=== PATIENT | female | born 1935 | race Caucasian/White ===

== ENCOUNTER 2021-01-21 15:27 | Inpatient (IN) | payer MEDICARE ==
[2021-01-21] MEDS: DILTIAZEM 125 MG in SODIUM CHLORIDE 0.9% 100 ML IV SCH (16:35)
--- NOTE | 2021-01-21 16:49 | ED ---
General Adult HPI - General Chief complaint: Arrhythmia/Palpitations Stated complaint: Covid+ Time Seen by Provider: 01/21/21 15:48 Source: patient, EMS, RN notes reviewed Mode of arrival: EMS Limitations: no limitations - History of Present Illness Initial comments: Patient is a pleasant 85-year-old female presenting to the emergency department complaining of illness. Onset of symptoms was 9 days ago. Patient complains of fatigue. Patient does have cough. Patient may have some mild dyspnea. Patient has no appetite and loss of taste. Patient has significant fatigue. Patient has had some mild diarrhea. No history of similar symptoms previously. Patient was seen and [facility] and diagnosed with COVID-19 infection. Patient also diagnosed with new-onset A. fib RVR. Patient has refused any heparin. Patient continues to refuse heparin. There was question on patient's CODE STATUS however patient identifies herself as being full code at this time. Patient was given aspirin. Patient was placed on Cardizem drip. - Related Data Home Medications Medication Instructions Recorded Confirmed Ascorbic Acid [Vitamin C] 500 mg PO DAILY 01/21/21 01/21/21 Cholecalciferol [Vitamin D3 (25 25 mcg PO DAILY 01/21/21 01/21/21 Mcg = 1000 Iu)] Vitamin A (Unknown Strength) 1 tab PO DAILY 01/21/21 01/21/21 Vitamin B Complex 1 cap PO DAILY 01/21/21 01/21/21 Vitamin E 400 unit PO DAILY 01/21/21 01/21/21 Zinc 50 mg PO DAILY 01/21/21 01/21/21 Allergies Allergy/AdvReac Type Severity Reaction Status Date / Time azithromycin Allergy Anaphylaxis Verified 01/21/21 16:46 Penicillins Allergy affects Verified 01/21/21 16:46 heart rate procaine HCl [From Novocain] Allergy affects Verified 01/21/21 16:46 heart rate electro magnetic field Allergy affects Uncoded 04/13/15 14:18 heart rate metals Allergy Unknown Uncoded 04/13/15 14:18 xray exposure Allergy affects Uncoded 04/13/15 14:18 heart rate Review of Systems ROS Statement: Those systems with pertinent positive or pertinent negative responses have been documented in the HPI. ROS Other: All systems not noted in ROS Statement are negative. Constitutional: Reports: chills Eyes: Denies: eye pain ENT: Denies: ear pain Respiratory: Reports: cough, dyspnea Cardiovascular: Denies: chest pain Endocrine: Reports: fatigue Gastrointestinal: Reports: diarrhea. Denies: abdominal pain Genitourinary: Denies: dysuria Musculoskeletal: Denies: back pain Skin: Denies: rash Neurological: Denies: confusion Past Medical History Past Medical History: Cancer, GERD/Reflux, Musculoskeletal Disorder Additional Past Medical History / Comment(s): hx. skin cancer, recent fx. right ankle-wearing splint currently, occasionally wheezes, carries or wears diodes due to her unusual allergies History of Any Multi-Drug Resistant Organisms: None Reported Past Surgical History: Orthopedic Surgery Additional Past Surgical History / Comment(s): cataract surg., repair fx. wrist, skin cancer removed, 04-15-15 ORIF RT ANKLE Past Anesthesia/Blood Transfusion Reactions: Family History of Problems w/ Anesthesia Additional Past Anesthesia/Blood Transfusion Reaction / Comment(s): very concerned about receiving anesthesia due to her allergies, has only had locals & nerve block in past, father had some kind of issue w/anesthesia in past. Cardiac arrhythmia evaluated by cardiology and felt that it was secondary to panic attacks Past Psychological History: Anxiety Smoking Status: Never smoker Past Alcohol Use History: Occasional Past Drug Use History: None Reported - Past Family History Mother Family Medical History: No Reported History General Exam Limitations: no limitations General appearance: alert, in no apparent distress Head exam: Present: normocephalic Eye exam: Present: normal appearance Neck exam: Present: normal inspection Respiratory exam: Present: normal lung sounds bilaterally Cardiovascular Exam: Present: tachycardia, irregular rhythm GI/Abdominal exam: Present: soft. Absent: tenderness Extremities exam: Present: normal inspection. Absent: pedal edema, calf tenderness Neurological exam: Present: alert Psychiatric exam: Present: normal affect, normal mood Skin exam: Present: normal color Course Vital Signs 01/21/21 01/21/21 01/21/21 15:44 16:47 17:58 Temperature 98.6 F Pulse Rate 109 H 120 H 118 H Respiratory 18 18 18 Rate Blood Pressure 99/88 107/80 107/80 O2 Sat by Pulse 95 95 95 Oximetry EKG Findings - EKG Comments: EKG Findings:: A. fib with RVR, rate 127. QRS 80. QT 306. QTc 444. Left axis. LVH criteria. No acute ST change. Medical Decision Making - Medical Decision Making Patient reevaluated and updated. Case discussed with Dr. Tariq, who will admit for hospital call. Patient is a candidate for monoclonal antibodies and is receptive to receiving this. This has been ordered. Patient will be admitted for new-onset A. fib with RVR. - Lab Data Lab Results 01/21/21 01/21/21 Range/Units Unknown Unknown PT 10.7 (9.0-12.0) sec INR 1.0 (<1.2) APTT 27.2 (22.0-30.0) sec Magnesium 2.2 (1.6-2.3) mg/dL Free T4 1.36 (0.78-2.19) ng/dL Free T3 pg/mL 3.4 (2.8-5.3) pg/ml - Radiology Data Radiology results: image reviewed (X-ray shows increased interstitial pulmonary densities.) Critical Care Time Critical Care Time: Yes Total Critical Care Time: 33 Disposition Clinical Impression: Atrial fibrillation, COVID-19 Disposition: ADMITTED IP TO THIS HOSP Is patient prescribed a controlled substance at d/c from ED?: No Referrals: Nonstaff,Physician [Primary Care Provider] - 1-2 days Decision Time: 17:00
[2021-01-21] MEDS ORDERED: NALOXONE 0.4 MG/ML 1 ML VIAL IV PRN (17:00)
--- NOTE | 2021-01-21 17:37 | XR ---
EXAMINATION TYPE: XR chest 1V portable DATE OF EXAM: 01/21/2021 COMPARISON: 04/16/2015 HISTORY: Dysrhythmia TECHNIQUE: Single view FINDINGS: Heart is enlarged. There is coarse pulmonary interstitial density in the lungs. There is no pleural effusion. There are no hilar masses. Thoracic aorta is atheromatous. There are chest leads. IMPRESSION: Increased pulmonary interstitial density compared to old exam. This could be acute pneumonia. No pleural fluid seen to suggest heart failure.
[2021-01-21] MEDS ORDERED: SODIUM CHLORIDE 0.9% 50 ML IVPB ONE (17:45)
[2021-01-21 17:50] LABS: Partial Thromboplastin Time 27.2 sec (22.0-30.0); Prothrombin Time 10.7 sec (9.0-12.0)
[2021-01-21] MEDS ORDERED: CASIRIVIMAB (REGN10933) (EUA) 600 MG, IMDEVIMAB (REGN10987) (EUA) 600 MG in SODIUM CHLO... IVPB ONE (18:00)
[2021-01-21 18:01] LABS: Magnesium 2.2 mg/dL (1.6-2.3)
[2021-01-21] MEDS: CHOLECALCIFEROL 25 MCG (1000 IU) TABLET PO SCH (18:07)
[2021-01-21] MEDS: ZINC SULFATE 220 MG CAP PO SCH (18:07)
[2021-01-21 18:19] LABS: T4, Free (Free Thyroxine) 1.36 ng/dL (0.78-2.19)
[2021-01-21] MEDS: ASCORBIC ACID 500 MG TAB PO SCH (22:02)
--- NOTE | 2021-01-22 03:37 | P.HPIM ---
History of Present Illness H&P Date: 01/21/21 Patient is an 85-year-old female with a PMH of glaucoma who was transferred from [facility] where she presented earlier today with complaints of weakness, fever, and nonproductive cough. The patient reports that over the past 10 days, she has had gradually worsening nonproductive cough and lethargy. The patient had undergone an extensive evaluation at [facility] which was all reviewed including a WBC count 5.6, hgb 13.8, sodium 135, potassium 4.1, chloride 102, CO2 23, BUN 18, creatinine 0.8, AST 49, troponin I 0.069, and chest x-ray showing findings consistent with bilateral pneumonia. Azithromycin was subsequently administered to the patient following which the patient became hypoxic and unresponsive, requiring IV Solu-Medrol and nonrebreather mask. The patient subsequently returned to her baseline within 10 minutes. She was then transferred to [facility]. EKG emergency room revealed A. fib with RVR at 127 bpm with left axis deviation with T-wave flattening in lead V2 and T-wave inversion in lead V1. Troponin I level in the emergency room was 0 .06. Patient denied a previous history of A. fib. Review of systems: Pertinent positives and negatives as discussed in HPI, a complete review of systems was performed and all other systems are negative. Physical examination: General: non toxic, no distress, appears at stated age, obese Derm: no unusual rashes/lesions no unusual ecchymoses, warm, dry Head: atraumatic, normocephalic, symmetric Eyes: EOMI, no lid lag, anicteric sclera, pupils equal round reactive to light ENT: Nose and ears atraumatic, no thrush, no pharyngeal erythema Neck: No thyromegaly, no cervical lymphadenopathy, trachea midline, supple Mouth: no lip lesion, mucus membranes moist Cardiovascular: Irregularly irregular, no murmur, positive posterior tibial pulse bilateral, no edema, capillary refill less than 2 seconds Lungs: CTA bilateral, no rhonchi, no rales , no accessory muscle use Abdominal: soft, nontender to palpation, no guarding, no appreciable organomegaly, normal bowel sounds Ext: no gross muscle atrophy, muscle strength 5 out of 5 in all 4 extremities grossly, no contractures, Neuro: CN II-XI grossly intact, light touch intact all 4 extremities, finger to nose within normal limits, Psych: Alert, oriented, appropriate affect Assessment/plan COVID-19 pneumonia with acute hypoxic respiratory failure -Continue supplemental oxygen -Decadron by mouth -Vitamin C, vitamin D, melatonin, zinc -Pulmonary consult A. fib with RVR -Patient is vehemently refusing any anticoagulation at this time -Cardiology consulted -Continue with Cardizem infusion Elevated troponin, suspected due to ongoing A. fib -Continue cardiac monitoring -Echocardiogram DVT prophylaxis -IPCDs The patient is admitted with an anticipated greater than 2 midnight stay for evaluation of Afib w/ rvr CODE STATUS:Full Code Discussed with: Patient Anticipated discharge date: 2-[address]: Home Past Medical History Past Medical History: Cancer, GERD/Reflux, Musculoskeletal Disorder Additional Past Medical History / Comment(s): hx. skin cancer, recent fx. right ankle-wearing splint currently, occasionally wheezes, carries or wears diodes due to her unusual allergies History of Any Multi-Drug Resistant Organisms: None Reported Past Surgical History: Orthopedic Surgery Additional Past Surgical History / Comment(s): cataract surg., repair fx. wrist, skin cancer removed, 04-15-15 ORIF RT ANKLE Past Anesthesia/Blood Transfusion Reactions: Family History of Problems w/ Anesthesia Additional Past Anesthesia/Blood Transfusion Reaction / Comment(s): very concerned about receiving anesthesia due to her allergies, has only had locals & nerve block in past, father had some kind of issue w/anesthesia in past. Cardiac arrhythmia evaluated by cardiology and felt that it was secondary to panic attacks Past Psychological History: Anxiety Smoking Status: Never smoker Past Alcohol Use History: Occasional Past Drug Use History: None Reported - Past Family History Mother Family Medical History: Hyperlipidemia Medications and Allergies Home Medications Medication Instructions Recorded Confirmed Type Ascorbic Acid [Vitamin C] 500 mg PO DAILY 01/21/21 01/21/21 History Cholecalciferol [Vitamin D3 (25 25 mcg PO DAILY 01/21/21 01/21/21 History Mcg = 1000 Iu)] Vitamin A (Unknown Strength) 1 tab PO DAILY 01/21/21 01/21/21 History Vitamin B Complex 1 cap PO DAILY 01/21/21 01/21/21 History Vitamin E 400 unit PO DAILY 01/21/21 01/21/21 History Zinc 50 mg PO DAILY 01/21/21 01/21/21 History Allergies Allergy/AdvReac Type Severity Reaction Status Date / Time azithromycin Allergy Anaphylaxis Verified 01/21/21 16:46 Penicillins Allergy affects Verified 01/21/21 16:46 heart rate procaine HCl [From Novocain] Allergy affects Verified 01/21/21 16:46 heart rate electro magnetic field Allergy affects Uncoded 04/13/15 14:18 heart rate metals Allergy Unknown Uncoded 04/13/15 14:18 xray exposure Allergy affects Uncoded 04/13/15 14:18 heart rate Physical Exam Vitals: Vital Signs Temp Pulse Pulse Resp BP BP Pulse Ox 01/21/21 22:16 98.1 F 104 H 18 129/88 93 L 01/21/21 21:22 112 H 17 116/74 95 01/21/21 19:06 123 H 18 114/76 95 01/21/21 18:43 129 H 18 97/84 95 01/21/21 17:58 118 H 18 107/80 95 01/21/21 16:47 120 H 18 107/80 95 01/21/21 15:44 98.6 F 109 H 18 99/88 95 Intake and Output 01/21/21 01/21/21 01/22/21 14:59 22:59 06:59 Other: Weight 77.111 kg Results Labs: Abnormal Lab Results - Last 24 Hours (Table) 01/21/21 01/21/21 Range/Units 19:05 Unknown Troponin I 0.036 H* 0.048 H* (0.000-0.034) ng/mL Thrombosis Risk Factor Assmnt - Choose All That Apply Any of the Below Risk Factors Present?: No Each Risk Factor Represents 3 Points: Age 75 years or older Other congenital or acquired thrombophilia - If yes, enter type in comment: No Thrombosis Risk Factor Assessment Total Risk Factor Score: 3 Thrombosis Risk Factor Assessment Level: Moderate Risk
[2021-01-22] MEDS: CHOLECALCIFEROL 25 MCG (1000 IU) TABLET PO SCH ×2 (08:15→08:16)
[2021-01-22] MEDS: dexAMETHasone 2 MG TAB PO SCH (08:15)
[2021-01-22] MEDS: ZINC SULFATE 220 MG CAP PO SCH (08:16)
[2021-01-22] MEDS: ASCORBIC ACID 500 MG TAB PO SCH ×2 (08:16→21:38)
[2021-01-22] MEDS ORDERED: ASPIRIN 325 MG TAB PO SCH (09:00)
[2021-01-22 10:32] LABS: Basophils % (A) 0 %; Eosinophils % (A) 0 %; HCT 43.2 % (34.0-46.0); HGB 13.9 gm/dL (11.4-16.0); Lymphocytes # (A) 0.6 k/uL (1.0-4.8); Lymphocytes % (A) 5 %; MCH 31.7 pg (25.0-35.0); MCHC 32.2 g/dL (31.0-37.0); MCV 98.7 fL (80.0-100.0); Mean Platelet Volume 8.2; Monocytes # (A) 0.3 k/uL (0-1.0); Monocytes % (A) 2 %; Neutrophils # (A) 11.8 k/uL (1.3-7.7); Neutrophils % (A) 92 %; Platelet Count 210 k/uL (150-450); RBC 4.38 m/uL (3.80-5.40); RDW 13.4 % (11.5-15.5); WBC 12.8 k/uL (3.8-10.6)
[2021-01-22 10:35] LABS: Albumin 3.2 g/dL (3.5-5.0); Calcium 8.3 mg/dL (8.4-10.2); Potassium 3.7 mmol/L (3.5-5.1); Total Bilirubin 0.3 mg/dL (0.2-1.3); Total Protein 5.9 g/dL (6.3-8.2)
--- NOTE | 2021-01-22 15:17 | P.PN ---
Subjective Patient was seen and evaluated this morning. Heart rate is well controlled. Patient was up in the chair. She denies any shortness of breath. Objective - Vital Signs Vital signs: Vital Signs Temp 97.9 F 01/22/21 12:00 Pulse 114 H 01/22/21 12:00 Resp 20 01/22/21 12:00 BP 119/67 01/22/21 14:12 Pulse Ox 92 L 01/22/21 12:00 Intake & Output 01/21/21 01/22/21 01/22/21 18:59 06:59 18:59 Intake Total 240 477.666 Balance 240 477.666 Weight 77.111 kg 70 kg Intake: Intake, IV Titration 117.666 Amount Diltiazem 125 mg In 117.666 Sodium Chloride 0.9% 100 ml @ 5 MG/HR 5 mls/hr IV .Q24H [facility] Rx#:[id number] Oral 240 360 Other: # Voids 1 1 - Exam General: The patient is awake and alert, in no distress Eye: there is normal conjunctiva bilaterally. Neck: The neck is supple, there is no JVD. Cardiovascular: Normal S1-S2, no S3-S4, no murmurs. Respiratory: Lungs clear to auscultation bilaterally Gastrointestinal: Abdomen is soft, nontender Musculoskeletal: There is no pedal edema. Neurological:. Speech is normal. Skin: Skin is warm and dry - Labs CBC & Chem 7: 01/22/21 09:48 01/22/21 09:48 Labs: Abnormal Lab Results - Last 24 Hours (Table) 01/21/21 01/21/21 01/22/21 Range/Units 19:05 Unknown 09:48 WBC 12.8 H (3.8-10.6) k/uL Neutrophils # 11.8 H (1.3-7.7) k/uL Lymphocytes # 0.6 L (1.0-4.8) k/uL Carbon Dioxide (22-30) mmol/L BUN (7-17) mg/dL Glucose (74-99) mg/dL Calcium (8.4-10.2) mg/dL AST (14-36) U/L ALT (4-34) U/L Troponin I 0.036 H* 0.048 H* (0.000-0.034) ng/mL Total Protein (6.3-8.2) g/dL Albumin (3.5-5.0) g/dL 01/22/21 Range/Units 09:48 WBC (3.8-10.6) k/uL Neutrophils # (1.3-7.7) k/uL Lymphocytes # (1.0-4.8) k/uL Carbon Dioxide 20 L (22-30) mmol/L BUN 21 H (7-17) mg/dL Glucose 180 H (74-99) mg/dL Calcium 8.3 L (8.4-10.2) mg/dL AST 55 H (14-36) U/L ALT 42 H (4-34) U/L Troponin I (0.000-0.034) ng/mL Total Protein 5.9 L (6.3-8.2) g/dL Albumin 3.2 L (3.5-5.0) g/dL Assessment and Plan Assessment: Patient is an 85-year-old female with a PMH of glaucoma who was transferred from [facility] where she presented with complaints of weakness, fever, and nonproductive cough. The patient had undergone an extensive evaluation at [facility] which was all reviewed including a WBC count 5.6, hgb 13.8, sodium 135, potassium 4.1, chloride 102, CO2 23, BUN 18, creatinine 0.8, AST 49, troponin I 0.069, and chest x-ray showing findings consistent with bilateral pneumonia. Azithromycin was subsequently administered to the patient following which the patient became hypoxic and unresponsive, requiring IV Solu-Medrol and nonrebreather mask. The patient subsequently returned to her baseline within 10 minutes. She was then transferred to [facility]. EKG emergency room revealed A. fib with RVR at 127 bpm with left axis deviation with T-wave flattening in lead V2 and T-wave inversion in lead V1. Troponin I level in the emergency room was 0.06. Patient denied a previous history of A. fib. Assessment/plan COVID-19 pneumonia with acute hypoxic respiratory failure -Continue supplemental oxygen -Decadron by mouth -Vitamin C, vitamin D, melatonin, zinc -Pulmonary consult A. fib with RVR -Patient refused any anticoagulation at this time -Cardiology consulted -Continue with Cardizem infusion -I would obtain echocardiogram -Thyroid function tests within normal range Elevated troponin, suspected due to ongoing A. fib DVT prophylaxis -IPCDs CODE STATUS:Full Code
[2021-01-22] MEDS: DILTIAZEM 125 MG in SODIUM CHLORIDE 0.9% 100 ML IV SCH (15:38)
--- NOTE | 2021-01-22 16:45 | P.CNPUL ---
History of Present Illness Consult date: 01/22/21 Requesting physician: Shira Reyes Reason for consult: pneumonia Chief complaint: Shortness of breath, cough, and not feeling well. History of present illness: This is an 85-year-old female transferred yesterday from [facility], patient has not been feeling well for over 10 days. Symptoms include cough, cough is described as nonproductive cough, weakness, lethargy, shortness of breath, and congestion. Patient is not vaccinated for COVID-19 infection, and her COVID-19 screening came back positive. Chest x-ray showed bilateral infiltrates, patient required to be on oxygen at 3 L, with O2 saturations 94%, she was noted to be slightly tachycardic with heart rate ranging between 114 and 127. She was hemodynamically stable. Her d-dimer is pending, and her LDH is pending, C-reactive protein is pending. Considering her COVID-19 pneumonia, I was asked to see the patient on consultation while in the ER, patient was noted to be relatively hypoxic, and she was in atrial fibrillation with RVR, rate of 1 27/m, and she had some T-wave abnormalities with T-wave inversion in lead V1. And her troponin was noted to be a bit elevated. Cardiology consultation is pending Review of Systems Constitutional: Weakness fatigue malaise HEENT: Nasal congestion. Pulmonary: As noted in HPI. Cardiac: Negative. GI: Negative. Genitourinary: Negative. Musko skeletal: Weakness Psychiatric: Negative. Endocrine: Negative. Hematologic: Negative. Psychiatric: Negative. Past Medical History Past Medical History: Cancer, GERD/Reflux, Musculoskeletal Disorder Additional Past Medical History / Comment(s): hx. skin cancer, recent fx. right ankle-wearing splint currently, occasionally wheezes, carries or wears diodes due to her unusual allergies History of Any Multi-Drug Resistant Organisms: None Reported Past Surgical History: Orthopedic Surgery Additional Past Surgical History / Comment(s): cataract surg., repair fx. wrist, skin cancer removed, 04-15-15 ORIF RT ANKLE Past Anesthesia/Blood Transfusion Reactions: Family History of Problems w/ Anesthesia Additional Past Anesthesia/Blood Transfusion Reaction / Comment(s): very concerned about receiving anesthesia due to her allergies, has only had locals & nerve block in past, father had some kind of issue w/anesthesia in past. Cardiac arrhythmia evaluated by cardiology and felt that it was secondary to panic attacks Past Psychological History: Anxiety Smoking Status: Never smoker Past Alcohol Use History: Occasional Past Drug Use History: None Reported - Past Family History Mother Family Medical History: Hyperlipidemia Medications and Allergies Home Medications Medication Instructions Recorded Confirmed Type Ascorbic Acid [Vitamin C] 500 mg PO DAILY 01/21/21 01/21/21 History Cholecalciferol [Vitamin D3 (25 25 mcg PO DAILY 01/21/21 01/21/21 History Mcg = 1000 Iu)] Vitamin A (Unknown Strength) 1 tab PO DAILY 01/21/21 01/21/21 History Vitamin B Complex 1 cap PO DAILY 01/21/21 01/21/21 History Vitamin E 400 unit PO DAILY 01/21/21 01/21/21 History Zinc 50 mg PO DAILY 01/21/21 01/21/21 History Allergies Allergy/AdvReac Type Severity Reaction Status Date / Time azithromycin Allergy Anaphylaxis Verified 01/21/21 16:46 Penicillins Allergy affects Verified 01/21/21 16:46 heart rate procaine HCl [From Novocain] Allergy affects Verified 01/21/21 16:46 heart rate electro magnetic field Allergy affects Uncoded 04/13/15 14:18 heart rate metals Allergy Unknown Uncoded 04/13/15 14:18 xray exposure Allergy affects Uncoded 04/13/15 14:18 heart rate Physical Exam Vitals: Vital Signs Temp Pulse Pulse Resp BP BP Pulse Ox 01/22/21 15:33 97.6 F 127 H 20 121/67 94 L 01/22/21 14:12 119/67 01/22/21 12:00 97.9 F 114 H 20 108/66 92 L 01/22/21 11:43 83 22 01/22/21 08:00 97.9 F 83 22 117/83 91 L 01/22/21 04:00 96.5 F L 116 H 20 108/78 93 L 01/21/21 23:54 98.2 F 111 H 18 107/77 90 L 01/21/21 22:16 98.1 F 104 H 18 129/88 93 L 01/21/21 21:22 112 H 17 116/74 95 01/21/21 19:06 123 H 18 114/76 95 01/21/21 18:43 129 H 18 97/84 95 01/21/21 17:58 118 H 18 107/80 95 01/21/21 16:47 120 H 18 107/80 95 Intake and Output 01/22/21 01/22/21 01/22/21 06:59 14:59 22:59 Intake Total 240 477.666 Balance 240 477.666 Intake: Intake, IV Titration 117.666 Amount Diltiazem 125 mg In 117.666 Sodium Chloride 0.9% 100 ml @ 5 MG/HR 5 mls/hr IV .Q24H [facility] Rx#:[id number] Oral 240 360 Other: # Voids 1 1 Weight 70 kg Physical Exam: Revealed a 85-year-old female in no distress. Head: Atraumatic, normocephalic. HEENT:[Neck is supple.] [No neck masses.] [No thyromegaly.] [No JVD.] Chest: [Symmetrical chest expansion, crackles at the bases. Cardiac Exam: [Irregular irregular rhythm. Normal S1 and S2, no S3 gallop, 2/6 systolic murmur thought the precordium. Abdomen: [Soft, nontender, no megaly, no rebound, no guarding, normal bowel sounds.] Extremities: [No clubbing, no edema, no cyanosis.] Neurological Exam: [No focal neurologic deficit.] Alert oriented 3. Psychiatric: Normal mood, affect and normal mental status examination. Skin: No rashes. Musko skeletal: No deformities and no limitation in range of motion Results - Laboratory Findings CBC and BMP: 01/22/21 09:48 01/22/21 09:48 PT/INR, D-dimer PT 10.7 sec (9.0-12.0) 01/21/21 Unknown INR 1.0 (<1.2) 01/21/21 Unknown Abnormal lab findings: Abnormal Labs 01/21/21 01/21/21 01/22/21 19:05 Unknown 09:48 WBC 12.8 H Neutrophils # 11.8 H Lymphocytes # 0.6 L Carbon Dioxide BUN Glucose Calcium AST ALT Troponin I 0.036 H* 0.048 H* Total Protein Albumin 01/22/21 09:48 WBC Neutrophils # Lymphocytes # Carbon Dioxide 20 L BUN 21 H Glucose 180 H Calcium 8.3 L AST 55 H ALT 42 H Troponin I Total Protein 5.9 L Albumin 3.2 L - Diagnostic Findings Chest x-ray: image reviewed (Bilateral infiltrates consistent with COVID-19 pneumonia.) Assessment and Plan Assessment: Impression: Acute hypoxic respiratory failure secondary to COVID-19 pneumonia Atrial fibrillation with RVR. Elevated troponin, most likely secondary to ongoing A. fib, possible non-ST elevation myocardial infarction. Recommendation: Continue COVID-19 cocktail. Patient is out of the window for remdesivir Patient does not qualify for baricitinib at this point since she is only requiring few liters of oxygen. Continue Decadron vitamin C vitamin D zinc Awaiting the results of her d-dimer, and her inflammatory markers. Patient may need to be fully anticoagulated because of her atrial fibrillation Cardiology to see on consultation. We will continue to follow Time with Patient: Greater than 30
--- NOTE | 2021-01-22 18:36 | CONS ---
CONSULTATION Mrs. Mayes is an 85-year-old female who presented to the hospital with symptoms of progressive dyspnea. She was diagnosed with COVID-19 infection. She was noted to be in atrial fibrillation. Cardiology consultation was requested. The patient is quite vague about her history. According to her, she has seen Dr. Ward in the past and was at that time she has atrial fibrillation. She is not sure if that has been persistent or transient. She does not feel the palpitations. She denies any chest pain. She has the dyspnea. No dizziness. No syncope. According to her, she has no prior history of myocardial infarction or angina pectoris. The patient is quite concerned about side effects from any medication. Her medications at home included vitamins, vitamin C and vitamin D. REVIEW OF SYSTEMS: RESPIRATORY SYSTEM: She has progressive dyspnea, the cough and the COVID-19 infection. GI SYSTEM: She has some nausea but no vomiting. SYSTEM: No dysuria or hematuria. NERVOUS SYSTEM: No stroke or seizure. PHYSICAL EXAMINATION: She is an 85-year-old female, alert, in no apparent distress. Blood pressure 121/60 with a heart rate running in the 80s to low 100s. HEAD: Normocephalic. EYES: Sclerae anicteric. NECK: Good carotid upstroke. No bruit. LUNGS: Decreased air exchange bilaterally with rhonchi. HEART: Irregularly irregular. S1, S2. No S3. No rub. ABDOMEN: Soft, nontender. Positive bowel sounds. No organomegaly. EXTREMITIES: No edema. LAB DATA: Troponin 0.036, 0.030, 0.048. BUN and creatinine are 21 and 0.73. Potassium is 3.7, hemoglobin 13.9, white blood cells of 12.8. EKG revealed atrial fibrillation with rapid ventricular response and nonspecific ST-T wave changes. Her chest x-ray revealed the interstitial density and infiltrate. IMPRESSION: 1. COVID-19 infection with COVID-19 pneumonia. 2. Atrial fibrillation of unknown duration with episode of rapid ventricular response. 3. Elevation of troponin related to her infectious process. RECOMMENDATIONS: I have discussed with the patient the importance of anticoagulation and the risk of stroke. I will initiate treatment with Eliquis. I will obtain an echocardiogram with Doppler. I will switch her to oral calcium channel deanne and, depending her progress, further recommendations will be made. Thank you for this consult. Will follow with you. MMODL / IJN: [id number] /
[2021-01-22] MEDS: APIXABAN 2.5 MG TABLET PO SCH (21:37)
[2021-01-22] MEDS: MELATONIN 5 MG TABLET PO SCH (21:37)
[2021-01-22] MEDS: DILTIAZEM ORAL 60 MG TAB PO SCH (21:37)
[2021-01-23] MEDS: CHOLECALCIFEROL 25 MCG (1000 IU) TABLET PO SCH ×2 (08:27→08:33)
[2021-01-23] MEDS: ZINC SULFATE 220 MG CAP PO SCH (08:33)
[2021-01-23] MEDS: dexAMETHasone 2 MG TAB PO SCH ×2 (08:33→21:21)
[2021-01-23] MEDS: DILTIAZEM ORAL 60 MG TAB PO SCH ×3 (08:33→21:21)
[2021-01-23] MEDS: ASCORBIC ACID 500 MG TAB PO SCH ×2 (08:33→21:21)
[2021-01-23] MEDS: APIXABAN 2.5 MG TABLET PO SCH ×2 (08:34→21:21)
[2021-01-23 09:21] LABS: Calcium 8.5 mg/dL (8.4-10.2); Potassium 4.1 mmol/L (3.5-5.1)
[2021-01-23] MEDS ORDERED: METOPROLOL TARTRATE 25 MG TAB PO SCH (09:45)
--- NOTE | 2021-01-23 13:38 | PN ---
PROGRESS NOTE Mrs Mayes is an 85-year-old female with history of atrial fibrillation who presented with symptoms of progressive dyspnea and cough and was diagnosed with COVID-19 infection. She continued to be dyspneic although slightly better. She denies any symptoms of chest pain. No dizziness. She has a cough. No nausea. The patient in the past has declined anticoagulation. She has been started yesterday on anticoagulation. She continues to be at the episode of rapid ventricular response. Her troponin was mildly elevated, most likely related to infectious process. She continues to be at this time on Eliquis 2.5 mg twice a day, diltiazem 60 mg three times a day, metoprolol tartrate 25 mg twice a day. PHYSICAL EXAMINATION: Blood pressure 105/50 with a heart rate in the 100s to 120s. LUNGS: With decreased air exchange, no wheezes. HEART: Irregular regular. S1, S2. No S3. No rub. ABDOMEN: Soft, nontender. EXTREMITIES: No edema. LAB DATA: Revealed BUN and creatinine 37 and 1.05, potassium 4.1. IMPRESSION: 1. COVID-19 pneumonia. 2. Atrial fibrillation with episode of rapid ventricular response. 3. Mild troponin elevation most likely related to the infectious process. No evidence to suggest acute ischemic event. RECOMMENDATIONS: From the cardiac standpoint, I will increase the dose of her beta deanne. She will undergo an echocardiogram tomorrow to evaluate the left ventricular systolic function and depending on her response and her status, further recommendations will be made. ALLA / MAURICEN: [id number] /
--- NOTE | 2021-01-23 14:55 | P.PN ---
Subjective Patient is feeling okay today. She does not have any specific complaints. No acute events overnight. Objective - Vital Signs Vital signs: Vital Signs Temp 97.4 F L 01/23/21 12:00 Pulse 124 H 01/23/21 13:39 Resp 26 H 01/23/21 13:39 BP 115/70 01/23/21 12:00 Pulse Ox 92 L 01/23/21 13:39 Intake & Output 01/22/21 01/23/21 01/23/21 18:59 06:59 18:59 Intake Total 597.666 480 356 Balance 597.666 480 356 Weight 70.5 kg Intake: Intake, IV Titration 117.666 Amount Diltiazem 125 mg In 117.666 Sodium Chloride 0.9% 100 ml @ 5 MG/HR 5 mls/hr IV .Q24H [facility] Rx#:[id number] Oral 480 480 356 Other: # Voids 1 1 # Bowel Movements 1 - Exam General: The patient is awake and alert, in no distress Eye: there is normal conjunctiva bilaterally. Neck: The neck is supple, there is no JVD. Cardiovascular: Normal S1-S2, no S3-S4, no murmurs. Respiratory: Lungs clear to auscultation bilaterally Gastrointestinal: Abdomen is soft, nontender Musculoskeletal: There is no pedal edema. Neurological:. Speech is normal. Skin: Skin is warm and dry - Labs CBC & Chem 7: 01/22/21 09:48 01/23/21 08:14 Labs: Abnormal Lab Results - Last 24 Hours (Table) 01/23/21 Range/Units 08:14 BUN 37 H (7-17) mg/dL Creatinine 1.05 H (0.52-1.04) mg/dL Glucose 165 H (74-99) mg/dL Assessment and Plan Assessment: Patient is an 85-year-old female with a PMH of glaucoma who was transferred from [facility] where she presented with complaints of weakness, fever, and nonproductive cough. The patient had undergone an extensive evaluation at [facility] which was all reviewed including a WBC count 5.6, hgb 13.8, sodium 135, potassium 4.1, chloride 102, CO2 23, BUN 18, creatinine 0.8, AST 49, troponin I 0.069, and chest x-ray showing findings consistent with bilateral pneumonia. Azithromycin was subsequently administered to the patient following which the patient became hypoxic and unresponsive, requiring IV Solu-Medrol and nonrebreather mask. The patient subsequently returned to her baseline within 10 minutes. She was then transferred to [facility]. EKG emerge ncy room revealed A. fib with RVR at 127 bpm with left axis deviation with T- wave flattening in lead V2 and T-wave inversion in lead V1. Troponin I level in the emergency room was 0.06. Patient denied a previous history of A. fib. Assessment/plan COVID-19 pneumonia with acute hypoxic respiratory failure -Continue supplemental oxygen -Decadron by mouth daily #2 -Vitamin C, vitamin D, melatonin, zinc -Pulmonary consult A. fib with RVR -Patient refused any anticoagulation on presentation that initially was agreeable to Eliquis -Cardiology consulted -Patient was on a Cardizem drip since admission now transitioned to oral Cardizem and metoprolol as directed by cardiology -Echocardiogram pending -Thyroid function test within normal range Mild acute kidney injury -Start gentle IV fluid hydration and repeat lab work in the morning Elevated troponin, suspected due to ongoing A. fib DVT prophylaxis -IPCDs CODE STATUS:Full Code
[2021-01-23] MEDS: SODIUM CHLORIDE 0.9% 1,000 ML IV SCH (15:48)
[2021-01-23] MEDS: METOPROLOL TARTRATE 25 MG TAB PO SCH ×2 (15:48→21:21)
--- NOTE | 2021-01-23 16:38 | P.PN ---
Subjective Progress Note Date: 01/23/21 This is an 85-year-old female transferred yesterday from [facility], patient has not been feeling well for over 10 days. Symptoms include cough, cough is described as nonproductive cough, weakness, lethargy, shortness of breath, and congestion. Patient is not vaccinated for COVID-19 infection, and her COVID-19 screening came back positive. Chest x-ray showed bilateral infiltrates, patient required to be on oxygen at 3 L, with O2 saturations 94%, she was noted to be slightly tachycardic with heart rate ranging between 114 and 127. She was hemodynamically stable. Her d-dimer is pending, and her LDH is pending, C-reactive protein is pending. Considering her COVID-19 pneumonia, I was asked to see the patient on consultation while in the ER, patient was noted to be relatively hypoxic, and she was in atrial fibrillation with RVR, rate of 1 27/m, and she had some T-wave abnormalities with T-wave inversion in lead V1. And her troponin was noted to be a bit elevated. Cardiology consultation is pending. The patient is seen today 01/23/2021 in follow-up, selective care unit. She is currently sitting up in bed. Awake and alert in mild respiratory distress. She is on 15 L high flow nasal cannula to maintain O2 saturations in the low 90s. She's been afebrile. Slightly tachycardic. Tachypneic. Sodium 139. Potassium 4.1. Creatinine 1.05. Glucose 165. She is continued on Decadron, vitamin supplements, anticoagulated with Eliquis. Objective - Vital Signs Vital signs: Vital Signs Temp 97.6 F 01/23/21 16:00 Pulse 121 H 01/23/21 16:00 Resp 26 H 01/23/21 16:00 BP 112/64 01/23/21 16:00 Pulse Ox 93 L 01/23/21 16:00 Intake & Output 01/22/21 01/23/21 01/23/21 18:59 06:59 18:59 Intake Total 597.666 480 356 Balance 597.666 480 356 Weight 70.5 kg Intake: Intake, IV Titration 117.666 Amount Diltiazem 125 mg In 117.666 Sodium Chloride 0.9% 100 ml @ 5 MG/HR 5 mls/hr IV .Q24H [facility] Rx#:[id number] Oral 480 480 356 Other: # Voids 1 1 # Bowel Movements 1 - Exam GENERAL EXAM: Alert, pleasant 85-year-old female, on 15 L high flow nasal cannula, fairly, comfortable in mild respiratory distress. HEAD: Normocephalic. EYES: Normal reaction of pupils, equal size. NOSE: Clear with pink turbinates. THROAT: No erythema or exudates. NECK: No masses, no JVD. CHEST: No chest wall deformity. LUNGS: Equal air entry with crackles in the bilateral bases. CVS: S1 and S2 normal with no audible murmur, regular rhythm. ABDOMEN: No hepatosplenomegaly, normal bowel sounds, no guarding or rigidity. SPINE: No scoliosis or deformity SKIN: No rashes CENTRAL NERVOUS SYSTEM: No focal deficits, tone is normal in all 4 extremities. EXTREMITIES: There is no peripheral edema. No clubbing, no cyanosis. Peripheral pulses are intact. - Labs CBC & Chem 7: 01/22/21 09:48 01/23/21 08:14 Labs: Abnormal Lab Results - Last 24 Hours (Table) 01/23/21 Range/Units 08:14 BUN 37 H (7-17) mg/dL Creatinine 1.05 H (0.52-1.04) mg/dL Glucose 165 H (74-99) mg/dL Assessment and Plan Assessment: 1 Acute hypoxemic respiratory failure secondary to acute COVID-19 pneumonia. Not vaccinated. Outside the window for Remdesivir. 2 Atrial fibrillation with rapid ventricular response, on beta blockers and anticoagulated with Eliquis 3 Troponin leak suspect secondary to A. fib with RVR Plan: The patient was seen and evaluated by Dr. Nguyen FiO2 requirements up to 15 L high flow nasal cannula Increased Decadron 6 mg twice daily And Baricitinib Continue vitamin supplements Continue Eliquis Follow-up chest x-ray and labs in the a.m. Prognosis is guarded We will ontinue to follow I, the cosigning physician, performed a history & physical examination of the patient. Lungs sounds crackles in the bilateral bases. Maintaining good O2 saturations in the 90s on 2 L high flow nasal cannula. I discussed the assessment and plan of care with my nurse practitioner, Abena Rausch. I attest to the above note as dictated by her.
[2021-01-23 17:50] LABS: C Reactive Protein 3.3 mg/dL (<1.0)
[2021-01-23] MEDS: MELATONIN 5 MG TABLET PO SCH (21:21)
[2021-01-23] MEDS: BARICITINIB 2 MG TABLET PO SCH (21:22)
[2021-01-24] MEDS: SODIUM CHLORIDE 0.9% 1,000 ML IV SCH (07:03)
--- NOTE | 2021-01-24 08:32 | XR ---
EXAMINATION TYPE: XR chest 1V portable DATE OF EXAM: 01/24/2021 COMPARISON: 01/21/2021 HISTORY: Cough TECHNIQUE: Single frontal view of the chest is obtained. FINDINGS: Heart is enlarged and underlying COPD suspected with alveolar interstitial infiltrates. De gree of chronic interstitial lung disease suspected. Ectasia of the aorta with atherosclerotic change s. IMPRESSION: Bilateral infiltrate correlate for multifocal pneumonia.
[2021-01-24] MEDS: CHOLECALCIFEROL 25 MCG (1000 IU) TABLET PO SCH ×2 (08:37→08:53)
[2021-01-24] MEDS: METOPROLOL TARTRATE 25 MG TAB PO SCH ×3 (08:52→21:28)
[2021-01-24] MEDS: dexAMETHasone 2 MG TAB PO SCH ×2 (08:52→21:28)
[2021-01-24] MEDS: ASCORBIC ACID 500 MG TAB PO SCH ×2 (08:53→21:27)
[2021-01-24] MEDS: ZINC SULFATE 220 MG CAP PO SCH (08:53)
[2021-01-24] MEDS: DILTIAZEM ORAL 60 MG TAB PO SCH ×3 (08:53→21:28)
[2021-01-24] MEDS: APIXABAN 2.5 MG TABLET PO SCH ×2 (08:53→21:27)
[2021-01-24 09:26] LABS: Calcium 8.2 mg/dL (8.4-10.2); Potassium 4.7 mmol/L (3.5-5.1)
--- NOTE | 2021-01-24 12:38 | P.PN ---
Subjective No significant change since yesterday. Patient is feeling well. No acute events overnight reported by nursing staff. Objective - Vital Signs Vital signs: Vital Signs Temp 97.7 F 01/24/21 08:10 Pulse 134 H 01/24/21 08:10 Resp 24 01/24/21 08:10 BP 104/63 01/24/21 08:10 Pulse Ox 92 L 01/24/21 04:00 Intake & Output 01/23/21 01/24/21 01/24/21 18:59 06:59 18:59 Intake Total 774 Balance 774 Weight 65 kg Intake: Oral 774 Other: # Voids 2 2 1 # Bowel Movements 1 - Exam General: The patient is awake and alert, in no distress Eye: there is normal conjunctiva bilaterally. Neck: The neck is supple, there is no JVD. Cardiovascular: Normal S1-S2, no S3-S4, no murmurs. Respiratory: Lungs clear to auscultation bilaterally Gastrointestinal: Abdomen is soft, nontender Musculoskeletal: There is no pedal edema. Neurological:. Speech is normal. Skin: Skin is warm and dry - Labs CBC & Chem 7: 01/22/21 09:48 01/24/21 07:31 Labs: Abnormal Lab Results - Last 24 Hours (Table) 01/23/21 01/23/21 01/24/21 Range/Units 17:09 17:09 07:31 D-Dimer 0.85 H (<0.60) mg/L FEU Chloride 109 H (98-107) mmol/L Carbon Dioxide 20 L (22-30) mmol/L BUN 44 H (7-17) mg/dL Glucose 123 H (74-99) mg/dL Calcium 8.2 L (8.4-10.2) mg/dL Lactate Dehydrogenase 1500 H (313-618) U/L C-Reactive Protein 3.3 H (<1.0) mg/dL Assessment and Plan Assessment: Patient is an 85-year-old female with a PMH of glaucoma who was transferred from [facility] where she presented with complaints of weakness, fever, and nonproductive cough. The patient had undergone an extensive evaluation at [facility] which was all reviewed including a WBC count 5.6, hgb 13.8, sodium 135, potassium 4.1, chloride 102, CO2 23, BUN 18, creatinine 0.8, AST 49, troponin I 0.069, and chest x-ray showing findings consistent with bilateral pneumonia. Azithromycin was subsequently administered to the patient following which the patient became hypoxic and unresponsive, requiring IV Solu-Medrol and nonrebreather mask. The patient subsequently returned to her baseline within 10 minutes. She was then transferred to [facility]. EKG emergency room revealed A. fib with RVR at 127 bpm with left axis deviation with T-wave flattening in lead V2 and T-wave inversion in lead V1. Troponin I level in the emergency room was 0.06. Patient denied a previous history of A. fib. Assessment/plan COVID-19 pneumonia with acute hypoxic respiratory failure -Continue supplemental oxygen -Decadron by mouth daily #3 -Vitamin C, vitamin D, melatonin, zinc -Pulmonary consult A. fib with RVR -Patient refused any anticoagulation on presentation that initially was agreeable to Eliquis -Cardiology consulted -Patient was on a Cardizem drip since admission now transitioned to oral Cardizem and metoprolol as directed by cardiology -Echocardiogram pending -Thyroid function test within normal range Mild acute kidney injury -Resolved with IV fluid hydration, discontinue Elevated troponin, suspected due to ongoing A. fib DVT prophylaxis -IPCDs CODE STATUS:Full Code
[2021-01-24] MEDS: ACETAMINOPHEN TAB 325 MG TAB PO PRN (13:15)
--- NOTE | 2021-01-24 14:55 | P.PN ---
Subjective Progress Note Date: 01/24/21 CHIEF COMPLAINT: a-fib HISTORY OF PRESENT ILLNESS: This is a 85 year old female with a past medical history significant for atrial fibrillation. She was admitted to the hospital secondary to Covid. She remains in atrial for ablation with a heart rate between [id number]. Patient's beta deanne was increased yesterday to 50 mg twice a day. Blood pressure 93/61. She is on 15 L high flow nasal cannula. PHYSICAL EXAM: Thorough physical exam not completed secondary to limited evaluation/examination due to Covid19 ASSESSMENT: Covid pneumonia Acute hypoxic respiratory failure Abnormal troponins, secondary to above Atrial fibrillation with uncontrolled ventricular rate, unknown if paroxysmal or chronic PLAN: 2D echo ordered. Await results Continue metoprolol 25 mg 3 times a day Continue Cardizem 60 mg 3 times a day Add digoxin 250 g daily for optimal heart rate control Continue telemetry monitoring Continue anticoagulation with Eliquis Further recommendations pending patient's course Nurse practitioner note has been reviewed by physician. Signing provider agrees with the documented findings, assessment, and plan of care. Objective - Vital Signs Vital signs: Vital Signs Temp 97.6 F 01/24/21 12:20 Pulse 89 01/24/21 12:20 Resp 18 01/24/21 12:20 BP 93/61 01/24/21 12:20 Pulse Ox 91 L 01/24/21 12:20 Intake & Output 01/23/21 01/24/21 01/24/21 18:59 06:59 18:59 Intake Total 774 Balance 774 Weight 65 kg Intake: Oral 774 Other: # Voids 2 2 1 # Bowel Movements 1 - Labs CBC & Chem 7: 01/22/21 09:48 01/24/21 07:31 Labs: Abnormal Lab Results - Last 24 Hours (Table) 01/23/21 01/23/21 01/24/21 Range/Units 17:09 17:09 07:31 D-Dimer 0.85 H (<0.60) mg/L FEU Chloride 109 H (98-107) mmol/L Carbon Dioxide 20 L (22-30) mmol/L BUN 44 H (7-17) mg/dL Glucose 123 H (74-99) mg/dL Calcium 8.2 L (8.4-10.2) mg/dL Lactate Dehydrogenase 1500 H (313-618) U/L C-Reactive Protein 3.3 H (<1.0) mg/dL
--- NOTE | 2021-01-24 15:03 | P.PN ---
Subjective Progress Note Date: 01/24/21 Principal diagnosis: COVID-19 pneumonia, A. fib with RVR On 01/24/2021 patient seen in follow-up on selective care unit, she is currently on 15 L per high flow nasal cannula, pulse ox is 92%, she is sitting up in the chair, she is short of breath with any exertion. Does not seem to be in any acute distress, she is afebrile, hemodynamically she has been stable, patient continues on Baricitinib, Eliquis for history of atrial fibrillation, and patient is on vitamin C, D, and zinc. Today's chest x-ray shows bilateral infiltrates. Today's labs have been reviewed, sodium is 137, potassium is 4.7, chloride is 109, CO2 is 20, BUN is 44, creatinine 0.94, last d-dimer from yes terday was 0.85, LDH level was 1500, CRP was 3.3. She remains in atrial fibrillation, and the rate is still tachycardic with a rate of 134. Cardiology is following, and patient is currently on metoprolol 25 mg 3 times a day, digoxin and oral Cardizem 60 mg 3 times daily. Objective - Vital Signs Vital signs: Vital Signs Temp 97.6 F 01/24/21 12:20 Pulse 89 01/24/21 12:20 Resp 18 01/24/21 12:20 BP 93/61 01/24/21 12:20 Pulse Ox 91 L 01/24/21 12:20 Intake & Output 01/23/21 01/24/21 01/24/21 18:59 06:59 18:59 Intake Total 774 Balance 774 Weight 65 kg Intake: Oral 774 Other: # Voids 2 2 1 # Bowel Movements 1 - Exam GENERAL EXAM: Alert, very pleasant, 85-year-old white female, on 15 L per high flow nasal cannula with pulse ox of 93% comfortable in no apparent distress. HEAD: Normocephalic/atraumatic. EYES: Normal reaction of pupils, equal size. Conjunctiva pink, sclera white. NOSE: Clear with pink turbinates. THROAT: No erythema or exudates. NECK: No masses, no JVD, no thyroid enlargement, no adenopathy. CHEST: No chest wall deformity. Symmetrical expansion. LUNGS: Equal air entry with bilateral crackles CVS: Irregular rate and rhythm, normal S1 and S2, no gallops, no murmurs, no rubs ABDOMEN: Soft, nontender. No hepatosplenomegaly, normal bowel sounds, no guarding or rigidity. EXTREMITIES: No clubbing, no edema, no cyanosis, 2+ pulses and upper and lower extremities. MUSCULOSKELETAL: Muscle strength and tone normal. SPINE: No scoliosis or deformity SKIN: No rashes CENTRAL NERVOUS SYSTEM: Alert and oriented -3. No focal deficits, tone is normal in all 4 extremities. PSYCHIATRIC: Alert and oriented -3. Appropriate affect. Intact judgment and insight. - Labs CBC & Chem 7: 01/22/21 09:48 01/24/21 07:31 Labs: Abnormal Lab Results - Last 24 Hours (Table) 01/23/21 01/23/21 01/24/21 Range/Units 17:09 17:09 07:31 D-Dimer 0.85 H (<0.60) mg/L FEU Chloride 109 H (98-107) mmol/L Carbon Dioxide 20 L (22-30) mmol/L BUN 44 H (7-17) mg/dL Glucose 123 H (74-99) mg/dL Calcium 8.2 L (8.4-10.2) mg/dL Lactate Dehydrogenase 1500 H (313-618) U/L C-Reactive Protein 3.3 H (<1.0) mg/dL Assessment and Plan Plan: Assessment: #1. Acute hypoxic respiratory failure secondary to acute: 19 pneumonia, patient is a non-vaccinated individual, she was outside the window for Remdesivir. She is currently on Baricitinib #2. A. fib with rapid ventricular response, patient remains in A. fib with RVR with a rate of 134 BPM today, she is currently on metoprolol 25 mg 3 times a day, digoxin, oral Cardizem, and Eliquis #3. Elevated inflammatory markers related to viral pneumonia #4. Chronic atrial fibrillation #5. Anxiety 6. Nonsmoker Plan: Continue current medical treatment Continue baricitinib, Eliquis, and vitamins Today's chest x-ray has been reviewed Labs have been noted Heart rate control medications per cardiology We'll continue to follow patient's clinical course I performed a history & physical examination of the patient and discussed their management with my nurse practitioner, Isabella Coleman. I reviewed the nurse practitioner's note and agree with the documented findings and plan of care. Lung sounds are positive for bilateral crackles throughout the lung richards. The findings and the impression was discussed with the patient. I attest to the documentation by the nurse practitioner. Time with Patient: Less than 30
[2021-01-24] MEDS: DIGOXIN 250 MCG TAB PO SCH (17:00)
[2021-01-24] MEDS: MELATONIN 5 MG TABLET PO SCH (21:27)
[2021-01-24] MEDS: BARICITINIB 2 MG TABLET PO SCH (21:28)
[2021-01-25 08:10] LABS: Basophils # (A) 0.1 k/uL (0-0.2); Basophils % (A) 1 %; Eosinophils % (A) 0 %; HCT 40.3 % (34.0-46.0); HGB 12.8 gm/dL (11.4-16.0); Lymphocytes # (A) 0.8 k/uL (1.0-4.8); Lymphocytes % (A) 8 %; MCH 31.3 pg (25.0-35.0); MCHC 31.8 g/dL (31.0-37.0); MCV 98.4 fL (80.0-100.0); Mean Platelet Volume 7.6; Monocytes # (A) 0.4 k/uL (0-1.0); Monocytes % (A) 4 %; Neutrophils # (A) 8.5 k/uL (1.3-7.7); Neutrophils % (A) 84 %; Platelet Count 286 k/uL (150-450); RBC 4.09 m/uL (3.80-5.40); RDW 13.4 % (11.5-15.5); WBC 10.1 k/uL (3.8-10.6)
[2021-01-25 08:42] LABS: Albumin 2.9 g/dL (3.5-5.0); Calcium 8.3 mg/dL (8.4-10.2); Total Bilirubin 0.5 mg/dL (0.2-1.3); Total Protein 5.6 g/dL (6.3-8.2)
[2021-01-25] MEDS: DIGOXIN 250 MCG TAB PO SCH (08:43)
[2021-01-25] MEDS: METOPROLOL TARTRATE 25 MG TAB PO SCH ×3 (08:43→21:38)
[2021-01-25] MEDS: ZINC SULFATE 220 MG CAP PO SCH (08:43)
[2021-01-25] MEDS: APIXABAN 2.5 MG TABLET PO SCH ×2 (08:43→21:38)
[2021-01-25] MEDS: CHOLECALCIFEROL 25 MCG (1000 IU) TABLET PO SCH (08:44)
[2021-01-25] MEDS: DILTIAZEM ORAL 60 MG TAB PO SCH (08:44)
[2021-01-25] MEDS: dexAMETHasone 2 MG TAB PO SCH (08:44)
[2021-01-25] MEDS: ASCORBIC ACID 500 MG TAB PO SCH ×2 (08:44→21:39)
--- NOTE | 2021-01-25 09:54 | ECHOF ---
Referral Reason:afib MEASUREMENTS -------- HEIGHT: 157.5 cm WEIGHT: 64.9 kg BP: 106/72 RVIDd: 3.4 cm (< 3.3) IVSd: 1.2 cm (0.6 - 1.1) LVIDd: 2.8 cm (3.9 - 5.3) LVPWd: 1.2 cm (0.6 - 1.1) IVSs: 1.7 cm LVIDs: 2.0 cm LVPWs: 1.6 cm LA Diam: 3.4 cm (2.7 - 3.8) LAESV Index (A-L): 27.59 ml/m Ao Diam: 3.3 cm (2.0 - 3.7) AV Cusp: 1.5 cm (1.5 - 2.6) MV EXCURSION: 16.095 mm (> 18.000) MV EF SLOPE: 422 mm/s (70 - 150) EPSS: 0.5 cm AV maxP.79 mmHg AV meanP.39 mmHg RAP: 5.00 mmHg RVSP: 28.02 mmHg FINDINGS -------- Atrial fibrillation. This was a technically adequate study. The left ventricular size is normal. There is borderline concentric left ventricular hypertrophy. Overall left ventricular systolic function is moderate-severely impaired with, an EF between 30 - 35 %. The right ventricle is mildly enlarged. Normal LA size by volume 22+/-6 ml/m2. The right atrium is normal in size. Patent foramen ovale present with right to left shunt. The aortic valve is bicuspid. There is moderate aortic valve sclerosis. There is moderate aortic stenosis present. Peak/mean gradient across the Aortic Valve is 23.79mmHg / 14.39mmHg. The mitral valve leaflets are mildly thickened. Mild mitral annular calcification present. Mild m itral regurgitation is present. Mild tricuspid regurgitation present. Right ventricular systolic pressure is normal at < 35 mmHg. Trace/mild (physiologic) pulmonic regurgitation. The aortic root size is normal. Normal inferior vena cava with normal inspiratory collapse consistent with estimated right atrial pre ssure of 5 mmHg. The inferior vena cava is mildly dilated. There is no pericardial effusion. CONCLUSIONS -------- 1. The left ventricular size is normal. 2. There is borderline concentric left ventricular hypertrophy. 3. Overall left ventricular systolic function is moderate-severely impaired with, an EF between 30 - 35 %. 4. The right ventricle is mildly enlarged. 5. Patent foramen ovale present with right to left shunt. 6. The aortic valve is bicuspid. 7. There is moderate aortic valve sclerosis. 8. There is moderate aortic stenosis present. 9. Peak/mean gradient across the Aortic Valve is 23.79mmHg / 14.39mmHg. 10. The mitral valve leaflets are mildly thickened. 11. Mild mitral annular calcification present. 12. Mild mitral regurgitation is present. 13. Mild tricuspid regurgitation present. 14. Trace/mild (physiologic) pulmonic regurgitation. 15. There is no pericardial effusion. [employer] MANAGER: Laurie Petty RDCS
[2021-01-25] MEDS ORDERED: METOPROLOL TARTRATE 25 MG TAB PO STA (10:54)
--- NOTE | 2021-01-25 13:03 | P.PN ---
Subjective Progress Note Date: 01/25/21 Principal diagnosis: COVID-19 pneumonia, A. fib with RVR On 01/24/2021 patient seen in follow-up on selective care unit, she is currently on 15 L per high flow nasal cannula, pulse ox is 92%, she is sitting up in the chair, she is short of breath with any exertion. Does not seem to be in any acute distress, she is afebrile, hemodynamically she has been stable, patient continues on Baricitinib, Eliquis for history of atrial fibrillation, and patient is on vitamin C, D, and zinc. Today's chest x-ray shows bilateral infiltrates. Today's labs have been reviewed, sodium is 137, potassium is 4.7, chloride is 109, CO2 is 20, BUN is 44, creatinine 0.94, last d-dimer from yes terday was 0.85, LDH level was 1500, CRP was 3.3. She remains in atrial fibrillation, and the rate is still tachycardic with a rate of 134. Cardiology is following, and patient is currently on metoprolol 25 mg 3 times a day, digoxin and oral Cardizem 60 mg 3 times daily. On 01/25/2021 patient seen in follow-up on selective care unit, she is currently down to 10 L of oxygen, yesterday she was on 15 L, her pulse ox is 90-95%, she is breathing comfortably, denies any chest pain, she remains in atrial fibrillation, and she still tachycardic, her rate is between 90-120 BPM, cardiology is following, patient is on a combination of beta blockers, digoxin, and oral Cardizem, she is on Eliquis for anticoagulation, today her beta deanne dose has been adjusted, and her metoprolol was increased to 50 mg 3 times a day. Patient appears to be anxious, she does not think that she is improving, she r equires a lot of reassurance, she states she is abnormally inches person to start with. She states that she has been up out of bed, generally is weak, but appears to be in no acute distress, she is tolerating oral intake, no abdominal pain, no chest pain. She remains on Baricitinib, Decadron 6 mg daily, she is on COVID-19 vitamins, today's labs have been reviewed, her white count is 10.1, hemoglobin is 12.8, lymphocyte count is 0.8, sodium is 135, potassium is 5.0, chloride is 111, CO2 is 20, BUN is 40, creatinine 0.8, her LDH level was 1500 on 01/23/2021 and CRP is 3.3, follow-up labs are pending for today. Objective - Vital Signs Vital signs: Vital Signs Temp 97.4 F L 01/25/21 08:00 Pulse 120 H 01/25/21 08:00 Resp 22 01/25/21 11:46 BP 95/68 01/25/21 11:46 Pulse Ox 89 L 01/25/21 11:46 Intake & Output 01/24/21 01/25/21 01/25/21 18:59 06:59 18:59 Intake Total 120 Balance 120 Weight 65.3 kg Intake: Oral 120 Other: # Voids 1 1 0 # Bowel Movements 1 0 - Exam GENERAL EXAM: Alert, very pleasant, 85-year-old white female, on 10 L per high flow nasal cannula with pulse ox of 93% comfortable in no apparent distress. HEAD: Normocephalic/atraumatic. EYES: Normal reaction of pupils, equal size. Conjunctiva pink, sclera white. NOSE: Clear with pink turbinates. THROAT: No erythema or exudates. NECK: No masses, no JVD, no thyroid enlargement, no adenopathy. CHEST: No chest wall deformity. Symmetrical expansion. LUNGS: Equal air entry with bilateral crackles CVS: Irregular rate and rhythm, normal S1 and S2, no gallops, no murmurs, no rubs ABDOMEN: Soft, nontender. No hepatosplenomegaly, normal bowel sounds, no guar ding or rigidity. EXTREMITIES: No clubbing, no edema, no cyanosis, 2+ pulses and upper and lower extremities. MUSCULOSKELETAL: Muscle strength and tone normal. SPINE: No scoliosis or deformity SKIN: No rashes CENTRAL NERVOUS SYSTEM: Alert and oriented -3. No focal deficits, tone is normal in all 4 extremities. PSYCHIATRIC: Alert and oriented -3. Appropriate affect. Intact judgment and insight. - Labs CBC & Chem 7: 01/25/21 07:40 01/25/21 07:40 Labs: Abnormal Lab Results - Last 24 Hours (Table) 01/25/21 01/25/21 Range/Units 07:40 07:40 Neutrophils # 8.5 H (1.3-7.7) k/uL Lymphocytes # 0.8 L (1.0-4.8) k/uL Chloride 111 H (98-107) mmol/L Carbon Dioxide 20 L (22-30) mmol/L BUN 40 H (7-17) mg/dL Glucose 126 H (74-99) mg/dL Calcium 8.3 L (8.4-10.2) mg/dL AST 56 H (14-36) U/L ALT 85 H (4-34) U/L Total Protein 5.6 L (6.3-8.2) g/dL Albumin 2.9 L (3.5-5.0) g/dL Assessment and Plan Plan: Assessment: #1. Acute hypoxic respiratory failure secondary to acute: 19 pneumonia, patient is a non-vaccinated individual, she was outside the window for Remdesivir. She is currently on Baricitinib #2. A. fib with rapid ventricular response, patient remains in A. fib with RVR with a rate of 134 BPM today, she is currently on metoprolol 25 mg 3 times a day, digoxin, oral Cardizem, and Eliquis #3. Elevated inflammatory markers related to viral pneumonia #4. Chronic atrial fibrillation #5. Anxiety 6. Nonsmoker Plan: Continue current medical treatment Continue baricitinib, Eliquis, and vitamins FiO2 is currently down to 10 L, continue weaning FiO2 to keep O2 sats ration is between 88-90% Patient remains in A. fib with RVR, rate control medications per cardiology, metoprolol has been adjusted and dose increased to 50 mg 3 times daily Overall clinical patient is improving, Consult physical therapy, increase activity as tolerated Obtain follow-up inflammatory markers tomorrow I performed a history & physical examination of the patient and discussed their management with my nurse practitioner, Isabella Coleman. I reviewed the nurse practitioner's note and agree with the documented findings and plan of care. Lung sounds are positive for bilateral crackles throughout the lung richards. The findings and the impression was discussed with the patient. I attest to the documentation by the nurse practitioner. Time with Patient: Less than 30
--- NOTE | 2021-01-25 13:44 | P.PN ---
Subjective Progress Note Date: 01/25/21 CHIEF COMPLAINT: a-fib HISTORY OF PRESENT ILLNESS: This is a 85 year old female with a past medical history significant for atrial fibrillation. She was admitted to the hospital secondary to Covid. She remains in atrial for ablation with a heart rate between [id number]. Patient's beta deanne was increased yesterday to 50 mg twice a day. Blood pressure 93/61. She is on 15 L high flow nasal cannula. 01/25/2021 Patient remains in atrial fibrillation with heart rates ranging between 90 and 120. Patient's blood pressure has improved with a recent reading of 113/80. She remains on 10 L nasal cannula. 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 PHYSICAL EXAM: Thorough physical exam not completed secondary to limited evaluation/examination due to Covid19 ASSESSMENT: Covid pneumonia Acute hypoxic respiratory failure Abnormal troponins, secondary to above Atrial fibrillation with uncontrolled ventricular rate, unknown if paroxysmal or chronic Valvular heart disease PFO Cardiomyopathy, ejection fraction 30-35%, type unknown, no previous echocardiogram for comparison PLAN: Continue current cardiac medications Increase metoprolol to 50mg TID Discontinue Cardizem secondary to decreased EF. No previous echo available for comparison Continue telemetry monitoring Continue anticoagulation with Eliquis Will add QUINN/ARB when blood pressure can tolerate Further recommendations pending patient's course Nurse practitioner note has been reviewed by physician. Signing provider agrees with the documented findings, assessment, and plan of care. Objective - Vital Signs Vital signs: Vital Signs Temp 97.4 F L 01/25/21 08:00 Pulse 120 H 01/25/21 08:00 Resp 22 01/25/21 11:46 BP 95/68 01/25/21 11:46 Pulse Ox 89 L 01/25/21 11:46 Intake & Output 01/24/21 01/25/21 01/25/21 18:59 06:59 18:59 Intake Total 120 Balance 120 Weight 65.3 kg Intake: Oral 120 Other: # Voids 1 1 0 # Bowel Movements 1 0 - Labs CBC & Chem 7: 01/25/21 07:40 01/25/21 07:40 Labs: Abnormal Lab Results - Last 24 Hours (Table) 11/02/21 11/02/21 Range/Units 07:40 07:40 Neutrophils # 8.5 H (1.3-7.7) k/uL Lymphocytes # 0.8 L (1.0-4.8) k/uL Chloride 111 H (98-107) mmol/L Carbon Dioxide 20 L (22-30) mmol/L BUN 40 H (7-17) mg/dL Glucose 126 H (74-99) mg/dL Calcium 8.3 L (8.4-10.2) mg/dL AST 56 H (14-36) U/L ALT 85 H (4-34) U/L Total Protein 5.6 L (6.3-8.2) g/dL Albumin 2.9 L (3.5-5.0) g/dL
[2021-01-25] MEDS ORDERED: DIGOXIN 250 MCG/ML 2 ML AMP IVP ONE (14:17)
--- NOTE | 2021-01-25 15:04 | P.PN ---
Subjective Patient is on 10 L of oxygen via high flow nasal cannula. Heart rate well controlled. No acute events overnight reported by nursing staff. Objective - Vital Signs Vital signs: Vital Signs Temp 97.4 F L 01/25/21 08:00 Pulse 120 H 01/25/21 08:00 Resp 22 01/25/21 11:46 BP 95/68 01/25/21 11:46 Pulse Ox 89 L 01/25/21 11:46 Intake & Output 01/24/21 01/25/21 01/25/21 18:59 06:59 18:59 Intake Total 120 Balance 120 Weight 65.3 kg Intake: Oral 120 Other: # Voids 1 1 0 # Bowel Movements 1 0 - Exam General: The patient is awake and alert, in no distress Eye: there is normal conjunctiva bilaterally. Neck: The neck is supple, there is no JVD. Cardiovascular: Normal S1-S2, no S3-S4, no murmurs. Respiratory: Lungs clear to auscultation bilaterally Gastrointestinal: Abdomen is soft, nontender Musculoskeletal: There is no pedal edema. Neurological:. Speech is normal. Skin: Skin is warm and dry - Labs CBC & Chem 7: 01/25/21 07:40 01/25/21 07:40 Labs: Abnormal Lab Results - Last 24 Hours (Table) 01/25/21 01/25/21 Range/Units 07:40 07:40 Neutrophils # 8.5 H (1.3-7.7) k/uL Lymphocytes # 0.8 L (1.0-4.8) k/uL Chloride 111 H (98-107) mmol/L Carbon Dioxide 20 L (22-30) mmol/L BUN 40 H (7-17) mg/dL Glucose 126 H (74-99) mg/dL Calcium 8.3 L (8.4-10.2) mg/dL AST 56 H (14-36) U/L ALT 85 H (4-34) U/L Total Protein 5.6 L (6.3-8.2) g/dL Albumin 2.9 L (3.5-5.0) g/dL Assessment and Plan Assessment: Patient is an 85-year-old female with a PMH of glaucoma who was transferred from [facility] where she presented with complaints of weakness, fever, and nonproductive cough. The patient had undergone an extensive evaluation at [facility] which was all reviewed including a WBC count 5.6, hgb 13.8, sodium 135, potassium 4.1, chloride 102, CO2 23, BUN 18, creatinine 0.8, AST 49, troponin I 0.069, and chest x-ray showing findings consistent with bilateral pneumonia. Azithromycin was subsequently administered to the patient following which the patient became hypoxic and unresponsive, requiring IV Solu-Medrol and nonrebreather mask. The patient subsequently returned to her baseline within 10 minutes. She was then transferred to [facility]. EKG emergency room revealed A. fib with RVR at 127 bpm with left axis deviation with T-wave flattening in lead V2 and T-wave inversion in lead V1. Troponin I level in the emergency room was 0.06. Patient denied a previous history of A. fib. Assessment/plan COVID-19 pneumonia with acute hypoxic respiratory failure, currently on 10 L of oxygen via high flow nasal cannula -Continue supplemental oxygen -Decadron by mouth daily #4 managed by pulmonary -Vitamin C, vitamin D, melatonin, zinc -Pulmonary consult A. fib with RVR -Patient refused any anticoagulation on presentation but eventually was agreeable to Eliquis -Cardiology consulted, appreciate recommendations -Patient was on a Cardizem drip since admission now transitioned to oral Cardizem and metoprolol as directed by cardiology -Echocardiogram pending -Thyroid function test within normal range Mild acute kidney injury -Resolved with IV fluid hydration, discontinue Elevated troponin, suspected due to ongoing A. fib DVT prophylaxis -IPCDs CODE STATUS:Full Code
[2021-01-25] MEDS ORDERED: METOPROLOL TARTRATE 50 MG TAB PO SCH (16:00)
[2021-01-25] MEDS ORDERED: DIGOXIN 250 MCG/ML 2 ML AMP ONE (16:34)
[2021-01-25] MEDS: MELATONIN 5 MG TABLET PO SCH (21:39)
[2021-01-25] MEDS: BARICITINIB 2 MG TABLET PO SCH (21:54)
[2021-01-26] MEDS: ACETAMINOPHEN TAB 325 MG TAB PO PRN ×3 (00:23→22:26)
[2021-01-26 08:33] LABS: Basophils % (A) 0 %; Eosinophils % (A) 0 %; HGB 12.6 gm/dL (11.4-16.0); Lymphocytes # (A) 0.8 k/uL (1.0-4.8); Lymphocytes % (A) 7 %; MCH 30.9 pg (25.0-35.0); MCHC 31.5 g/dL (31.0-37.0); MCV 98.2 fL (80.0-100.0); Mean Platelet Volume 7.7; Monocytes # (A) 0.4 k/uL (0-1.0); Monocytes % (A) 3 %; Neutrophils # (A) 10.5 k/uL (1.3-7.7); Neutrophils % (A) 88 %; Platelet Count 356 k/uL (150-450); RBC 4.08 m/uL (3.80-5.40); RDW 13.2 % (11.5-15.5); WBC 11.9 k/uL (3.8-10.6)
[2021-01-26] MEDS: METOPROLOL TARTRATE 25 MG TAB PO SCH ×3 (08:39→22:23)
[2021-01-26] MEDS: ASCORBIC ACID 500 MG TAB PO SCH ×2 (08:39→20:23)
[2021-01-26] MEDS: DIGOXIN 250 MCG TAB PO SCH (08:39)
[2021-01-26] MEDS: dexAMETHasone 2 MG TAB PO SCH (08:40)
[2021-01-26] MEDS: ZINC SULFATE 220 MG CAP PO SCH (08:40)
[2021-01-26] MEDS: CHOLECALCIFEROL 25 MCG (1000 IU) TABLET PO SCH (08:40)
[2021-01-26] MEDS: APIXABAN 2.5 MG TABLET PO SCH ×2 (08:40→20:23)
--- NOTE | 2021-01-26 08:46 | XR ---
EXAMINATION TYPE: XR chest 1V portable DATE OF EXAM: 01/26/2021 COMPARISON: Chest x-ray 01/24/2021 HISTORY: Covid, abnormal chest x-ray TECHNIQUE: Single frontal view of the chest is obtained. FINDINGS: Bilateral airspace disease is again noted. Cardiac mediastinal silhouette is stable. Aorta is dense. There are overlying artifacts. No evident pneumothorax or pleural effusion. IMPRESSION: Findings are similar to prior exam.
[2021-01-26 08:55] LABS: Calcium 8.6 mg/dL (8.4-10.2); Potassium 4.9 mmol/L (3.5-5.1); Total Bilirubin 0.6 mg/dL (0.2-1.3); Total Protein 5.6 g/dL (6.3-8.2)
--- NOTE | 2021-01-26 14:12 | P.PN ---
Subjective Progress Note Date: 01/26/21 CHIEF COMPLAINT: a-fib HISTORY OF PRESENT ILLNESS: This is a 85 year old female with a past medical history significant for atrial fibrillation. She was admitted to the hospital secondary to Covid. She remains in atrial for ablation with a heart rate between [id number]. Patient's beta deanne was increased yesterday to 50 mg twice a day. Blood pressure 93/61. She is on 15 L high flow nasal cannula. 01/25/2021 Patient remains in atrial fibrillation with heart rates ranging between 90 and 120. Patient's blood pressure has improved with a recent reading of 113/80. She remains on 10 L nasal cannula. Echocardiogram completed reveals ejection fraction 30-35%, patent jay ovale present with [id number] shunt, bicuspid aortic valve, moderate aortic stenosis, mild mitral regurgitation, mild tricuspid regurgitation. 01/26/2021 Patient remains in atrial fibrillation with heart rates around 95-110. She is receiving metoprolol and digoxin. Her Cardizem was discontinued yesterday secondary to decreased EF. Dr. Gannon reviewed echocardiogram which reveals PFO with more left to right shunting, rather than right to left. She remains on 8 L high flow nasal cannula. Blood pressure 101/62. PHYSICAL EXAM: Thorough physical exam not completed secondary to limited evaluation/examination due to Covid19 ASSESSMENT: Covid pneumonia Acute hypoxic respiratory failure Abnormal troponins, secondary to above Atrial fibrillation with uncontrolled ventricular rate, unknown if paroxysmal or chronic Valvular heart disease PFO Cardiomyopathy, ejection fraction 30-35%, type unknown, no previous echocardiog jhonny for comparison PLAN: Continue current cardiac medications Continue metoprolol 75 mg 3 times a day and digoxin 250 g daily Continue telemetry monitoring Continue anticoagulation with Eliquis Will add QUINN/ARB when blood pressure can tolerate Further recommendations pending patient's course Nurse practitioner note has been reviewed by physician. Signing provider agrees with the documented findings, assessment, and plan of care. Objective - Vital Signs Vital signs: Vital Signs Temp 97.9 F 01/26/21 12:23 Pulse 108 H 01/26/21 12:23 Resp 18 01/26/21 12:23 BP 101/62 01/26/21 12:23 Pulse Ox 92 L 01/26/21 12:23 Intake & Output 01/25/21 01/26/21 01/26/21 18:59 06:59 18:59 Intake Total 420 358 Output Total 1 Balance 419 358 Intake: Oral 420 358 Output: Stool 1 Other: # Voids 2 1 # Bowel Movements 0 1 - Labs CBC & Chem 7: 01/26/21 07:49 01/26/21 07:49 Labs: Abnormal Lab Results - Last 24 Hours (Table) 01/26/21 01/26/21 Range/Units 07:49 07:49 WBC 11.9 H (3.8-10.6) k/uL Neutrophils # 10.5 H (1.3-7.7) k/uL Lymphocytes # 0.8 L (1.0-4.8) k/uL Chloride 109 H (98-107) mmol/L BUN 41 H (7-17) mg/dL Glucose 133 H (74-99) mg/dL AST 41 H (14-36) U/L ALT 73 H (4-34) U/L Total Protein 5.6 L (6.3-8.2) g/dL Albumin 3.0 L (3.5-5.0) g/dL
--- NOTE | 2021-01-26 14:27 | P.PN ---
Subjective Progress Note Date: 01/26/21 Principal diagnosis: COVID-19 pneumonia, A. fib with RVR On 01/24/2021 patient seen in follow-up on selective care unit, she is currently on 15 L per high flow nasal cannula, pulse ox is 92%, she is sitting up in the chair, she is short of breath with any exertion. Does not seem to be in any acute distress, she is afebrile, hemodynamically she has been stable, patient continues on Baricitinib, Eliquis for history of atrial fibrillation, and patient is on vitamin C, D, and zinc. Today's chest x-ray shows bilateral infiltrates. Today's labs have been reviewed, sodium is 137, potassium is 4.7, chloride is 109, CO2 is 20, BUN is 44, creatinine 0.94, last d-dimer from yes terday was 0.85, LDH level was 1500, CRP was 3.3. She remains in atrial fibrillation, and the rate is still tachycardic with a rate of 134. Cardiology is following, and patient is currently on metoprolol 25 mg 3 times a day, digoxin and oral Cardizem 60 mg 3 times daily. On 01/25/2021 patient seen in follow-up on selective care unit, she is currently down to 10 L of oxygen, yesterday she was on 15 L, her pulse ox is 90-95%, she is breathing comfortably, denies any chest pain, she remains in atrial fibrillation, and she still tachycardic, her rate is between 90-120 BPM, cardiology is following, patient is on a combination of beta blockers, digoxin, and oral Cardizem, she is on Eliquis for anticoagulation, today her beta deanne dose has been adjusted, and her metoprolol was increased to 50 mg 3 times a day. Patient appears to be anxious, she does not think that she is improving, she r equires a lot of reassurance, she states she is abnormally inches person to start with. She states that she has been up out of bed, generally is weak, but appears to be in no acute distress, she is tolerating oral intake, no abdominal pain, no chest pain. She remains on Baricitinib, Decadron 6 mg daily, she is on COVID-19 vitamins, today's labs have been reviewed, her white count is 10.1, hemoglobin is 12.8, lymphocyte count is 0.8, sodium is 135, potassium is 5.0, chloride is 111, CO2 is 20, BUN is 40, creatinine 0.8, her LDH level was 1500 on 01/23/2021 and CRP is 3.3, follow-up labs are pending for today. On 01/26/2021 patient seen in follow-up on selective care unit. She is awake and alert, she is sitting up in the recliner, she is currently on 15 L of oxygen pulse ox is 95-96%, her breathing has remained stable, she gets dyspneic with exertion, but does not appear to be in any acute respiratory distress, lung sounds reveal a few scattered rhonchi and bibasilar rales, no fever or chills, no complaints of chest discomfort, patient does get anxious at times, she has Xanax as needed. Chest x-ray today shows bilateral airspace disease similar to the prior exam. Patient remains on Baricitinib, Decadron, Eliquis. Today's labs have been reviewed, white blood cell count 11.9, hemoglobin is 12.6, sodium is 139, potassium is 4.9, chloride is 109, BUN is 41, creatinine 0.85. No nausea or vomiting, she is tolerating oral intake, her intake is fair. Objective - Vital Signs Vital signs: Vital Signs Temp 97.9 F 01/26/21 12:23 Pulse 108 H 01/26/21 12:23 Resp 18 01/26/21 12:23 BP 101/62 01/26/21 12:23 Pulse Ox 92 L 01/26/21 12:23 Intake & Output 01/25/21 01/26/21 01/26/21 18:59 06:59 18:59 Intake Total 420 358 Output Total 1 Balance 419 358 Intake: Oral 420 358 Output: Stool 1 Other: # Voids 2 1 # Bowel Movements 0 1 - Exam GENERAL EXAM: Alert, very pleasant, 85-year-old white female, on 15 L per high flow nasal cannula with pulse ox of 96% comfortable in no apparent distress. HEAD: Normocephalic/atraumatic. EYES: Normal reaction of pupils, equal size. Conjunctiva pink, sclera white. NOSE: Clear with pink turbinates. THROAT: No erythema or exudates. NECK: No masses, no JVD, no thyroid enlargement, no adenopathy. CHEST: No chest wall deformity. Symmetrical expansion. LUNGS: Equal air entry with bilateral crackles CVS: Irregular rate and rhythm, normal S1 and S2, no gallops, no murmurs, no rubs ABDOMEN: Soft, nontender. No hepatosplenomegaly, normal bowel sounds, no guarding or rigidity. EXTREMITIES: No clubbing, no edema, no cyanosis, 2+ pulses and upper and lower extremities. MUSCULOSKELETAL: Muscle strength and tone normal. SPINE: No scoliosis or deformity SKIN: No rashes CENTRAL NERVOUS SYSTEM: Alert and oriented -3. No focal deficits, tone is normal in all 4 extremities. PSYCHIATRIC: Alert and oriented -3. Appropriate affect. Intact judgment and insight. - Labs CBC & Chem 7: 01/26/21 07:49 01/26/21 07:49 Labs: Abnormal Lab Results - Last 24 Hours (Table) 01/26/21 01/26/21 Range/Units 07:49 07:49 WBC 11.9 H (3.8-10.6) k/uL Neutrophils # 10.5 H (1.3-7.7) k/uL Lymphocytes # 0.8 L (1.0-4.8) k/uL Chloride 109 H (98-107) mmol/L BUN 41 H (7-17) mg/dL Glucose 133 H (74-99) mg/dL AST 41 H (14-36) U/L ALT 73 H (4-34) U/L Total Protein 5.6 L (6.3-8.2) g/dL Albumin 3.0 L (3.5-5.0) g/dL Assessment and Plan Plan: Assessment: #1. Acute hypoxic respiratory failure secondary to acute: 19 pneumonia, patient is a non-vaccinated individual, she was outside the window for Remdesivir. She is currently on Baricitinib #2. A. fib with rapid ventricular response, patient remains in A. fib with RVR with a rate of 134 BPM today, she is currently on metoprolol 25 mg 3 times a day, digoxin, oral Cardizem, and Eliquis #3. Elevated inflammatory markers related to viral pneumonia #4. Chronic atrial fibrillation #5. Anxiety 6. Nonsmoker Plan: Continue current medical treatment Continue baricitinib, Eliquis, and vitamins Continue weaning FiO2 to keep O2 sats ration is between 88-90% Patient remains in A. fib with RVR, rate control medications per cardiology, metoprolol has been adjusted and dose increased to 50 mg 3 times daily Consult physical therapy, increase activity as tolerated Obtain follow-up inflammatory markers tomorrow I performed a history & physical examination of the patient and discussed their management with my nurse practitioner, Isabella Coleman. I reviewed the nurse practitioner's note and agree with the documented findings and plan of care. Lung sounds are positive for bilateral crackles throughout the lung richards. The findings and the impression was discussed with the patient. I attest to the documentation by the nurse practitioner. Time with Patient: Less than 30
[2021-01-26] MEDS: MELATONIN 5 MG TABLET PO SCH (20:23)
--- NOTE | 2021-01-26 21:06 | P.PN ---
Subjective Progress Note Date: 01/26/21 Patient is an 85-year-old female with glaucoma and heart murmur as a child who initially presented at [facility] secondary to weakness, fever, and nonproductive cough. She underwent an extensive evaluation which showed a chest x-ray with bilateral pneumonia. She was started on Zithromax and subsequently became hypoxic and unresponsive. She did require a nonrebreather mask and initiation of Solu-Medrol and bronchodilators. Cold the testing came back positive. She was transferred here for further evaluation. On arrival here she was noted be in A. fib with RVR she was started on a Cardizem drip and cardiology was consulted. On 01/23 she had increasing O2 requirements and Baracitinib was added. echo came back with EF 30-35%, PFO, Right to left shunt, moderate with bicuspid valve. Patient seen and examined at bedside. She states that she lives alone at home, was driving herself to any of her appointments, taking care of herself independently. She denies any known history of a PFO. She states she has never had A. fib in the past. She states she has always been healthy and wants to go back and be healthy. We discussed that she may need to go to rehab to regain enough strength to live alone. Patient does not want to do this but is aware that she might have to General: non toxic, no distress, appears younger than stated age Derm: warm, dry Head: atraumatic, normocephalic, symmetric Eyes: EOMI, no lid lag, anicteric sclera Mouth: no lip lesion, mucus membranes moist Cardiovascular: S1S2 regular, no murmur, positive posterior tibial pulse bilateral, Lungs: Course breath sounds bilateral, no rhonchi, no rales , no accessory muscle use Abdominal: soft, nontender to palpation, no guarding, no appreciable organomegaly Ext: no gross muscle atrophy, no edema, no contractures Neuro: CN II-XI grossly intact, no focal neuro deficits Psych: Alert, oriented, appropriate affect COVID-19 pneumonia Acute hypoxic respiratory failure -Pulmonary was consulted -She was started on Decadron, vitamin C, vitamin D, and zinc - Baracitinib - wean O2 as able A. fib with RVR PFO Bicuspid aortic valve Elevated troponin Cardiomyopathy - Patient refused anticoagulation for atrial fibrillation -Cardiology recommendations: Metoprolol 75 mg 3 times daily, digoxin will need outpatient follow-up -Telemetry -Eliquis Transaminitis -Mild -Likely secondary to go with -Follow up on an outpatient basis DVT prophylaxis: Tremaine Discussed with: Patient, nursing Anticipated discharge: In 2-[address]: Likely will need rehab A total of 35 minutes was spent on the care of this complex patient more than 50% of the time was spent in counseling and care coordination. Objective - Vital Signs Vital signs: Vital Signs Temp 98.0 F 01/26/21 15:54 Pulse 116 H 01/26/21 15:54 Resp 18 01/26/21 19:02 BP 137/73 01/26/21 15:54 Pulse Ox 94 L 01/26/21 19:02 Intake & Output 01/26/21 01/26/21 01/27/21 06:59 18:59 06:59 Intake Total 598 Balance 598 Intake: Oral 598 Other: # Voids 1 1 # Bowel Movements 1 - Labs CBC & Chem 7: 01/26/21 07:49 01/26/21 07:49 Labs: Abnormal Lab Results - Last 24 Hours (Table) 01/26/21 01/26/21 Range/Units 07:49 07:49 WBC 11.9 H (3.8-10.6) k/uL Neutrophils # 10.5 H (1.3-7.7) k/uL Lymphocytes # 0.8 L (1.0-4.8) k/uL Chloride 109 H (98-107) mmol/L BUN 41 H (7-17) mg/dL Glucose 133 H (74-99) mg/dL AST 41 H (14-36) U/L ALT 73 H (4-34) U/L Total Protein 5.6 L (6.3-8.2) g/dL Albumin 3.0 L (3.5-5.0) g/dL
[2021-01-26] MEDS: BARICITINIB 2 MG TABLET PO SCH (22:21)
[2021-01-27] MEDS: CHOLECALCIFEROL 25 MCG (1000 IU) TABLET PO SCH (08:33)
[2021-01-27] MEDS: dexAMETHasone 2 MG TAB PO SCH (08:33)
[2021-01-27] MEDS: ZINC SULFATE 220 MG CAP PO SCH (08:33)
[2021-01-27] MEDS: METOPROLOL TARTRATE 25 MG TAB PO SCH ×3 (08:33→20:00)
[2021-01-27] MEDS: ASCORBIC ACID 500 MG TAB PO SCH ×2 (08:34→20:00)
[2021-01-27] MEDS: APIXABAN 2.5 MG TABLET PO SCH ×2 (08:34→20:00)
[2021-01-27] MEDS: DIGOXIN 250 MCG TAB PO SCH (08:34)
[2021-01-27] MEDS: ACETAMINOPHEN TAB 325 MG TAB PO PRN (08:34)
[2021-01-27 09:11] LABS: Basophils # (A) 0.1 k/uL (0-0.2); Basophils % (A) 0 %; Eosinophils % (A) 0 %; HCT 39.4 % (34.0-46.0); HGB 12.9 gm/dL (11.4-16.0); Lymphocytes # (A) 0.8 k/uL (1.0-4.8); Lymphocytes % (A) 7 %; MCH 31.5 pg (25.0-35.0); MCHC 32.7 g/dL (31.0-37.0); MCV 96.3 fL (80.0-100.0); Mean Platelet Volume 7.5; Monocytes # (A) 0.5 k/uL (0-1.0); Monocytes % (A) 4 %; Neutrophils # (A) 10.7 k/uL (1.3-7.7); Neutrophils % (A) 88 %; Platelet Count 408 k/uL (150-450); RBC 4.09 m/uL (3.80-5.40); RDW 13.8 % (11.5-15.5); WBC 12.1 k/uL (3.8-10.6)
[2021-01-27 09:40] LABS: Albumin 2.9 g/dL (3.5-5.0); Calcium 8.4 mg/dL (8.4-10.2); Magnesium 2.4 mg/dL (1.6-2.3); Total Bilirubin 0.6 mg/dL (0.2-1.3); Total Protein 5.5 g/dL (6.3-8.2)
[2021-01-27] MEDS: AMIODARONE 200 MG TAB PO SCH ×2 (11:41→20:00)
[2021-01-27 13:22] VITALS: BMI 26.3
--- NOTE | 2021-01-27 14:16 | P.PN ---
Subjective Progress Note Date: 01/27/21 CHIEF COMPLAINT: a-fib HISTORY OF PRESENT ILLNESS: This is a 85 year old female with a past medical history significant for atrial fibrillation. She was admitted to the hospital secondary to Covid. She remains in atrial for ablation with a heart rate between [id number]. Patient's beta deanne was increased yesterday to 50 mg twice a day. Blood pressure 93/61. She is on 15 L high flow nasal cannula. 01/25/2021 Patient remains in atrial fibrillation with heart rates ranging between 90 and 120. Patient's blood pressure has improved with a recent reading of 113/80. She remains on 10 L nasal cannula. Echocardiogram completed reveals ejection fraction 30-35%, patent jay ovale present with [id number] shunt, bicuspid aortic valve, moderate aortic stenosis, mild mitral regurgitation, mild tricuspid regurgitation. 01/26/2021 Patient remains in atrial fibrillation with heart rates around 95-110. She is receiving metoprolol and digoxin. Her Cardizem was discontinued yesterday secondary to decreased EF. Dr. Gannon reviewed echocardiogram which reveals PFO with more left to right shunting, rather than right to left. She remains on 8 L high flow nasal cannula. Blood pressure 101/62. Addendum entered and electronically signed by Kendall Gannon DO 01/26/21 18:56: Patient with CMP EF 30-35% unknown baseline may be related to tachy induced or from COVID. Echo mentions PFO with right to left shunt however only left to right shunt noted on echo, prominent Eustachian valve and moderate . No significant elevated RVSP and do not suspect Eiseinmenger's physiology. Continue with supportive COVID treatment. Increased rate control for Afib. Prognosis guarded. 01/27/2021 Patient remains in atrial fibrillation with heart rates ranging between [id number]. Blood pressure 122/78. She is currently receiving metoprolol 75 mg 3 times a day and digoxin 250 g daily PHYSICAL EXAM: Thorough physical exam not completed secondary to limited evaluation/examination due to Covid19 ASSESSMENT: Covid pneumonia Acute hypoxic respiratory failure Abnormal troponins, secondary to above Atrial fibrillation with uncontrolled ventricular rate, unknown if paroxysmal or chronic Valvular heart disease PFO Cardiomyopathy, ejection fraction 30-35%, type unknown, no previous echocardiogram for comparison PLAN: Continue current cardiac medications Continue metoprolol 75 mg 3 times a day and digoxin 250 g daily Add amiodarone 400 mg by mouth twice a day Continue telemetry monitoring Continue anticoagulation with Eliquis Will add QUINN/ARB when blood pressure can tolerate Further recommendations pending patient's course Nurse practitioner note has been reviewed by physician. Signing provider agrees with the documented findings, assessment, and plan of care. Objective - Vital Signs Vital signs: Vital Signs Temp 97.8 F 01/27/21 11:50 Pulse 122 H 01/27/21 11:50 Resp 18 01/27/21 14:08 BP 129/71 01/27/21 11:50 Pulse Ox 94 L 01/27/21 11:50 Intake & Output 01/26/21 01/27/21 01/27/21 18:59 06:59 18:59 Intake Total 598 720 Output Total 300 Balance 598 -300 720 Weight 65.3 kg Intake: Oral 598 720 Output: Urine 300 Other: # Voids 1 1 1 # Bowel Movements 1 1 - Labs CBC & Chem 7: 01/27/21 08:23 01/27/21 08:23 Labs: Abnormal Lab Results - Last 24 Hours (Table) 01/27/21 01/27/21 Range/Units 08:23 08:23 WBC 12.1 H (3.8-10.6) k/uL Neutrophils # 10.7 H (1.3-7.7) k/uL Lymphocytes # 0.8 L (1.0-4.8) k/uL Chloride 109 H (98-107) mmol/L BUN 37 H (7-17) mg/dL Magnesium 2.4 H (1.6-2.3) mg/dL ALT 63 H (4-34) U/L Total Protein 5.5 L (6.3-8.2) g/dL Albumin 2.9 L (3.5-5.0) g/dL
--- NOTE | 2021-01-27 14:46 | P.PN ---
Subjective Progress Note Date: 01/27/21 Principal diagnosis: COVID-19 pneumonia, A. fib with RVR On 01/24/2021 patient seen in follow-up on selective care unit, she is currently on 15 L per high flow nasal cannula, pulse ox is 92%, she is sitting up in the chair, she is short of breath with any exertion. Does not seem to be in any acute distress, she is afebrile, hemodynamically she has been stable, patient continues on Baricitinib, Eliquis for history of atrial fibrillation, and patient is on vitamin C, D, and zinc. Today's chest x-ray shows bilateral infiltrates. Today's labs have been reviewed, sodium is 137, potassium is 4.7, chloride is 109, CO2 is 20, BUN is 44, creatinine 0.94, last d-dimer from yes terday was 0.85, LDH level was 1500, CRP was 3.3. She remains in atrial fibrillation, and the rate is still tachycardic with a rate of 134. Cardiology is following, and patient is currently on metoprolol 25 mg 3 times a day, digoxin and oral Cardizem 60 mg 3 times daily. On 01/25/2021 patient seen in follow-up on selective care unit, she is currently down to 10 L of oxygen, yesterday she was on 15 L, her pulse ox is 90-95%, she is breathing comfortably, denies any chest pain, she remains in atrial fibrillation, and she still tachycardic, her rate is between 90-120 BPM, cardiology is following, patient is on a combination of beta blockers, digoxin, and oral Cardizem, she is on Eliquis for anticoagulation, today her beta deanne dose has been adjusted, and her metoprolol was increased to 50 mg 3 times a day. Patient appears to be anxious, she does not think that she is improving, she r equires a lot of reassurance, she states she is abnormally inches person to start with. She states that she has been up out of bed, generally is weak, but appears to be in no acute distress, she is tolerating oral intake, no abdominal pain, no chest pain. She remains on Baricitinib, Decadron 6 mg daily, she is on COVID-19 vitamins, today's labs have been reviewed, her white count is 10.1, hemoglobin is 12.8, lymphocyte count is 0.8, sodium is 135, potassium is 5.0, chloride is 111, CO2 is 20, BUN is 40, creatinine 0.8, her LDH level was 1500 on 01/23/2021 and CRP is 3.3, follow-up labs are pending for today. On 01/26/2021 patient seen in follow-up on selective care unit. She is awake and alert, she is sitting up in the recliner, she is currently on 15 L of oxygen pulse ox is 95-96%, her breathing has remained stable, she gets dyspneic with exertion, but does not appear to be in any acute respiratory distress, lung sounds reveal a few scattered rhonchi and bibasilar rales, no fever or chills, no complaints of chest discomfort, patient does get anxious at times, she has Xanax as needed. Chest x-ray today shows bilateral airspace disease similar to the prior exam. Patient remains on Baricitinib, Decadron, Eliquis. Today's labs have been reviewed, white blood cell count 11.9, hemoglobin is 12.6, sodium is 139, potassium is 4.9, chloride is 109, BUN is 41, creatinine 0.85. No nausea or vomiting, she is tolerating oral intake, her intake is fair. On 01/27/2021 patient seen in follow-up on selective care unit, she is sitting up in the chair, in no acute distress, her FiO2 is currently down to 6 L and her pulse ox is 94%, she is breathing fairly comfortably, no complaints of chest discomfort. Her A. fib is controlled, on Eliquis for anticoagulation, remains on oral amiodarone at this time. Remains on oral Decadron 6 mg daily. Echocardiogram showed evidence of possible left to left shunt, cardiology is following, and the recommendation is to continue with supportive treatment for coughing at this time. No fever or chills. Yesterday's chest x-ray showed bilateral airspace disease no evident pneumothorax or pleural effusion. No bilateral extremity swelling, clinically patient does not look fluid overloaded. Today's labs have been reviewed, white blood cell count is 12.1, hemoglobin is 12.9, sodium is 139, potassium is 5.0, BUN is 37 creatinine 0.82, proBNP came back elevated at 9,990 Objective - Vital Signs Vital signs: Vital Signs Temp 97.8 F 01/27/21 11:50 Pulse 122 H 01/27/21 11:50 Resp 18 01/27/21 14:08 BP 129/71 01/27/21 11:50 Pulse Ox 94 L 01/27/21 11:50 Intake & Output 01/26/21 01/27/21 01/27/21 18:59 06:59 18:59 Intake Total 598 720 Output Total 300 Balance 598 -300 720 Weight 65.3 kg Intake: Oral 598 720 Output: Urine 300 Other: # Voids 1 1 1 # Bowel Movements 1 1 - Exam GENERAL EXAM: Alert, very pleasant, 85-year-old white female, on 6 L per high flow nasal cannula with pulse ox of 96% comfortable in no apparent distress. HEAD: Normocephalic/atraumatic. EYES: Normal reaction of pupils, equal size. Conjunctiva pink, sclera white. NOSE: Clear with pink turbinates. THROAT: No erythema or exudates. NECK: No masses, no JVD, no thyroid enlargement, no adenopathy. CHEST: No chest wall deformity. Symmetrical expansion. LUNGS: Equal air entry with bilateral crackles CVS: Irregular rate and rhythm, normal S1 and S2, no gallops, no murmurs, no rubs ABDOMEN: Soft, nontender. No hepatosplenomegaly, normal bowel sounds, no guarding or rigidity. EXTREMITIES: No clubbing, no edema, no cyanosis, 2+ pulses and upper and lower extremities. MUSCULOSKELETAL: Muscle strength and tone normal. SPINE: No scoliosis or deformity SKIN: No rashes CENTRAL NERVOUS SYSTEM: Alert and oriented -3. No focal deficits, tone is normal in all 4 extremities. PSYCHIATRIC: Alert and oriented -3. Appropriate affect. Intact judgment and insight. - Labs CBC & Chem 7: 01/27/21 08:23 01/27/21 08:23 Labs: Abnormal Lab Results - Last 24 Hours (Table) 01/27/21 01/27/21 Range/Units 08:23 08:23 WBC 12.1 H (3.8-10.6) k/uL Neutrophils # 10.7 H (1.3-7.7) k/uL Lymphocytes # 0.8 L (1.0-4.8) k/uL Chloride 109 H (98-107) mmol/L BUN 37 H (7-17) mg/dL Magnesium 2.4 H (1.6-2.3) mg/dL ALT 63 H (4-34) U/L Total Protein 5.5 L (6.3-8.2) g/dL Albumin 2.9 L (3.5-5.0) g/dL Assessment and Plan Plan: Assessment: #1. Acute hypoxic respiratory failure secondary to acute: 19 pneumonia, patient is a non-vaccinated individual, she was outside the window for Remdesivir. She is currently on Baricitinib #2. A. fib with rapid ventricular response, patient remains in A. fib with RVR with a rate of 134 BPM today, she is currently on metoprolol 25 mg 3 times a day, digoxin, oral Cardizem, and Eliquis #3. Elevated inflammatory markers related to viral pneumonia #4. Chronic atrial fibrillation #5. Anxiety 6. Nonsmoker Plan: Continue current medical treatment Continue baricitinib, Eliquis, and vitamins Continue weaning FiO2 to keep O2 sats ration is between 88-90% currently down to 6 l/min Consult physical therapy, increase activity as tolerated Clinically improving once Fiio2 down to 5 l/min and less, may consider discharge home or rehab I performed a history & physical examination of the patient and discussed their management with my nurse practitioner, Isabella Coleman. I reviewed the nurse practitioner's note and agree with the documented findings and plan of care. Lung sounds are positive for bilateral crackles throughout the lung richards. The findings and the impression was discussed with the patient. I attest to the documentation by the nurse practitioner. Time with Patient: Less than 30
[2021-01-27] MEDS: ALPRAZolam 0.5 MG TAB PO PRN (17:02)
[2021-01-27] MEDS: FUROSEMIDE 10 MG/ML 4 ML VIAL IV SCH (17:02)
--- NOTE | 2021-01-27 19:52 | P.PN ---
Subjective Progress Note Date: 01/27/21 (delayed charting seen at 1700) Patient is an 85-year-old female with glaucoma and heart murmur as a child who initially presented at [facility] secondary to weakness, fever, and nonproductive cough. She underwent an extensive evaluation which showed a chest x-ray with bilateral pneumonia. She was started on Zithromax and subsequently became hypoxic and unresponsive. She did require a nonrebreather mask and initiation of Solu-Medrol and bronchodilators. Cold the testing came back positive. She was transferred here for further evaluation. On arrival here she was noted be in A. fib with RVR she was started on a Cardizem drip and cardiology was consulted. On 01/23 she had increasing O2 requirements and Baracitinib was added. echo came back with EF 30-35%, PFO, moderate with bicuspid valve. Her oxygenation rapidly improved on 01/26. She was having some fluid overload with elevated BNP and was started on Lasix. Patient seen and examined at bedside. Doing very anxious and upset. States that this is a lot to deal with. We discussed that she has cardiomyopathy, PFO, A. fib, and Covid that she is doing much better. We still agree that she will likely go home on oxygen in the rehab therapy. General: non toxic, no distress, appears younger than stated age Derm: warm, dry Head: atraumatic, normocephalic, symmetric Eyes: EOMI, no lid lag, anicteric sclera Mouth: no lip lesion, mucus membranes moist Cardiovascular: S1S2 regular, no murmur, positive posterior tibial pulse b ilateral, Lungs: Course breath sounds bilateral, no rhonchi, no rales , no accessory muscle use Abdominal: soft, nontender to palpation, no guarding, no appreciable organomegaly Ext: no gross muscle atrophy, no edema, no contractures Neuro: CN II-XI grossly intact, no focal neuro deficits Psych: Alert, oriented, appropriate affect COVID-19 pneumonia Acute hypoxic respiratory failure -Pulmonary was consulted -She was started on Decadron day #6, vitamin C, vitamin D, and zinc - Baracitinib dose #2/12 - wean O2 as able A. 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%, unknown type - start lasix - Patient refused anticoagulation for atrial fibrillation -Cardiology recommendations: Metoprolol 75 mg 3 times daily, digoxin will need outpatient follow-up, amiodarone oral -Telemetry -Eliquis -Strict I's and O's, daily weights Transaminitis -Mild -Likely secondary to go with -Follow up on an outpatient basis Discussed with cardiology. Patient actually has a biphasic shock with more going [id number] and [id number]. They recommended starting Lasix. DVT prophylaxis: Tremaine Discussed with: Patient, nursing Anticipated discharge: in 1-[address]: Likely will need rehab A total of 35 minutes was spent on the care of this complex patient more than 50% of the time was spent in counseling and care coordination. Objective - Vital Signs Vital signs: Vital Signs Temp 97.8 F 01/27/21 16:26 Pulse 109 H 01/27/21 16:26 Resp 18 01/27/21 16:26 BP 122/78 01/27/21 16:26 Pulse Ox 93 L 01/27/21 16:26 Intake & Output 01/27/21 01/27/21 01/28/21 06:59 18:59 06:59 Intake Total 960 Output Total 300 Balance -300 960 Weight 65.3 kg Intake: Oral 960 Output: Urine 300 Other: # Voids 1 1 # Bowel Movements 1 - Labs CBC & Chem 7: 01/27/21 08:23 01/27/21 08:23 Labs: Abnormal Lab Results - Last 24 Hours (Table) 01/27/21 01/27/21 Range/Units 08:23 08:23 WBC 12.1 H (3.8-10.6) k/uL Neutrophils # 10.7 H (1.3-7.7) k/uL Lymphocytes # 0.8 L (1.0-4.8) k/uL Chloride 109 H (98-107) mmol/L BUN 37 H (7-17) mg/dL Magnesium 2.4 H (1.6-2.3) mg/dL ALT 63 H (4-34) U/L Total Protein 5.5 L (6.3-8.2) g/dL Albumin 2.9 L (3.5-5.0) g/dL
[2021-01-27] MEDS: BARICITINIB 2 MG TABLET PO SCH (20:00)
[2021-01-27] MEDS: MELATONIN 5 MG TABLET PO SCH (20:00)
[2021-01-28] MEDS: ASCORBIC ACID 500 MG TAB PO SCH ×2 (08:47→21:11)
[2021-01-28] MEDS: CHOLECALCIFEROL 25 MCG (1000 IU) TABLET PO SCH (08:47)
[2021-01-28] MEDS: ZINC SULFATE 220 MG CAP PO SCH (08:47)
[2021-01-28] MEDS: AMIODARONE 200 MG TAB PO SCH ×2 (08:47→21:11)
[2021-01-28] MEDS: ALPRAZolam 0.5 MG TAB PO PRN (08:47)
[2021-01-28] MEDS: METOPROLOL TARTRATE 25 MG TAB PO SCH ×3 (08:47→21:11)
[2021-01-28] MEDS: FUROSEMIDE 10 MG/ML 4 ML VIAL IV SCH (08:48)
[2021-01-28] MEDS: dexAMETHasone 2 MG TAB PO SCH (08:48)
[2021-01-28] MEDS: DIGOXIN 250 MCG TAB PO SCH (08:48)
[2021-01-28] MEDS: APIXABAN 2.5 MG TABLET PO SCH ×2 (08:48→21:11)
[2021-01-28 10:08] LABS: Albumin 2.7 g/dL (3.5-5.0); Calcium 8.2 mg/dL (8.4-10.2); Potassium 4.7 mmol/L (3.5-5.1); Total Bilirubin 0.5 mg/dL (0.2-1.3); Total Protein 5.2 g/dL (6.3-8.2)
[2021-01-28 11:12] LABS: HCT 38.7 % (34.0-46.0); MCH 32.7 pg (25.0-35.0); MCHC 33.6 g/dL (31.0-37.0); MCV 97.2 fL (80.0-100.0); Platelet Count 390 k/uL (150-450); RBC 3.98 m/uL (3.80-5.40); RDW 13.7 % (11.5-15.5); WBC 14.1 k/uL (3.8-10.6)
[2021-01-28 13:27] LABS: Band Neutrophils % 1 %; Lymphocytes # (M) 1.27 k/uL (1.0-4.8); Metamyelocytes # (M) 0.14 k/uL (0); Metamyelocytes % 1 %; Monocytes # (M) 0.85 k/uL (0-1.0); Myelocytes # (M) 0.28 k/uL (0); Myelocytes % 2 %; Neutrophils % (M) 83 %; Nucleated Red Blood Cells 0 /100 WBC (0-0); Total Cells Counted 200
--- NOTE | 2021-01-28 13:36 | P.PN ---
Subjective Progress Note Date: 01/28/21 CHIEF COMPLAINT: a-fib HISTORY OF PRESENT ILLNESS: This is a 85 year old female with a past medical history significant for atrial fibrillation. She was admitted to the hospital secondary to Covid. She remains in atrial for ablation with a heart rate between 171618. Patient's beta deanne was increased yesterday to 50 mg twice a day. Blood pressure 93/61. She is on 15 L high flow nasal cannula. 01/25/2021 Patient remains in atrial fibrillation with heart rates ranging between 90 and 120. Patient's blood pressure has improved with a recent reading of 113/80. She remains on 10 L nasal cannula. Echocardiogram completed reveals ejection fraction 30-35%, patent jay ovale present with [id number] shunt, bicuspid aortic valve, moderate aortic stenosis, mild mitral regurgitation, mild tricuspid regurgitation. 01/26/2021 Patient remains in atrial fibrillation with heart rates around 95-110. She is receiving metoprolol and digoxin. Her Cardizem was discontinued yesterday secondary to decreased EF. Dr. Gannon reviewed echocardiogram which reveals PFO with more left to right shunting, rather than right to left. She remains on 8 L high flow nasal cannula. Blood pressure 101/62. Addendum entered and electronically signed by Kendall Gannon DO 01/26/21 18:56: Patient with CMP EF 30-35% unknown baseline may be related to tachy induced or from COVID. Echo mentions PFO with right to left shunt however only left to right shunt noted on echo, prominent Eustachian valve and moderate . No significant elevated RVSP and do not suspect Eiseinmenger's physiology. Continue with supportive COVID treatment. Increased rate control for Afib. Prognosis guarded. 01/27/2021 Patient remains in atrial fibrillation with heart rates ranging between 792465. Blood pressure 122/78. She is currently receiving metoprolol 75 mg 3 times a day and digoxin 250 g daily 01/28/2021 Patient remains in atrial fibrillation with controlled ventricular rate at the time of my evaluation with a heart rate ranging between 7090. Vital signs are stable. PHYSICAL EXAM: Thorough physical exam not completed secondary to limited evaluation/examination due to Covid19 ASSESSMENT: Covid pneumonia Acute hypoxic respiratory failure Abnormal troponins, secondary to above Atrial fibrillation with uncontrolled ventricular rate, unknown if paroxysmal or chronic Valvular heart disease PFO Cardiomyopathy, ejection fraction 30-35%, type unknown, no previous echocardiog jhonny for comparison PLAN: Continue current cardiac medications Continue telemetry monitoring Continue anticoagulation with Eliquis Will add QUINN/ARB when blood pressure can tolerate We will sign off. Please reconsult if needed Nurse practitioner note has been reviewed by physician. Signing provider agrees with the documented findings, assessment, and plan of care. Objective - Vital Signs Vital signs: Vital Signs Temp 98.8 F 01/28/21 12:07 Pulse 102 H 01/28/21 12:07 Resp 18 01/28/21 13:25 BP 100/65 01/28/21 12:07 Pulse Ox 94 L 01/28/21 12:07 Intake & Output 01/27/21 01/28/21 01/28/21 18:59 06:59 18:59 Intake Total 960 600 Output Total 2 Balance 960 -2 600 Weight 65.3 kg 65 kg Intake: Oral 960 600 Output: Stool 2 Other: # Voids 1 1 # Bowel Movements 1 1 - Labs CBC & Chem 7: 01/28/21 08:06 01/28/21 08:06 Labs: Abnormal Lab Results - Last 24 Hours (Table) 01/28/21 01/28/21 Range/Units 08:06 08:06 WBC 14.1 H (3.8-10.6) k/uL Neutrophils # (Manual) 11.80 H (1.3-7.7) k/uL Metamyelocytes # (Man) 0.14 H (0) k/uL Myelocytes # (Manual) 0.28 H (0) k/uL BUN 41 H (7-17) mg/dL Calcium 8.2 L (8.4-10.2) mg/dL ALT 50 H (4-34) U/L Total Protein 5.2 L (6.3-8.2) g/dL Albumin 2.7 L (3.5-5.0) g/dL
--- NOTE | 2021-01-28 15:04 | P.PN ---
Subjective Progress Note Date: 01/28/21 Principal diagnosis: COVID-19 pneumonia, A. fib with RVR On 01/24/2021 patient seen in follow-up on selective care unit, she is currently on 15 L per high flow nasal cannula, pulse ox is 92%, she is sitting up in the chair, she is short of breath with any exertion. Does not seem to be in any acute distress, she is afebrile, hemodynamically she has been stable, patient continues on Baricitinib, Eliquis for history of atrial fibrillation, and patient is on vitamin C, D, and zinc. Today's chest x-ray shows bilateral infiltrates. Today's labs have been reviewed, sodium is 137, potassium is 4.7, chloride is 109, CO2 is 20, BUN is 44, creatinine 0.94, last d-dimer from yes terday was 0.85, LDH level was 1500, CRP was 3.3. She remains in atrial fibrillation, and the rate is still tachycardic with a rate of 134. Cardiology is following, and patient is currently on metoprolol 25 mg 3 times a day, digoxin and oral Cardizem 60 mg 3 times daily. On 01/25/2021 patient seen in follow-up on selective care unit, she is currently down to 10 L of oxygen, yesterday she was on 15 L, her pulse ox is 90-95%, she is breathing comfortably, denies any chest pain, she remains in atrial fibrillation, and she still tachycardic, her rate is between 90-120 BPM, cardiology is following, patient is on a combination of beta blockers, digoxin, and oral Cardizem, she is on Eliquis for anticoagulation, today her beta deanne dose has been adjusted, and her metoprolol was increased to 50 mg 3 times a day. Patient appears to be anxious, she does not think that she is improving, she r equires a lot of reassurance, she states she is abnormally inches person to start with. She states that she has been up out of bed, generally is weak, but appears to be in no acute distress, she is tolerating oral intake, no abdominal pain, no chest pain. She remains on Baricitinib, Decadron 6 mg daily, she is on COVID-19 vitamins, today's labs have been reviewed, her white count is 10.1, hemoglobin is 12.8, lymphocyte count is 0.8, sodium is 135, potassium is 5.0, chloride is 111, CO2 is 20, BUN is 40, creatinine 0.8, her LDH level was 1500 on 01/23/2021 and CRP is 3.3, follow-up labs are pending for today. On 01/26/2021 patient seen in follow-up on selective care unit. She is awake and alert, she is sitting up in the recliner, she is currently on 15 L of oxygen pulse ox is 95-96%, her breathing has remained stable, she gets dyspneic with exertion, but does not appear to be in any acute respiratory distress, lung sounds reveal a few scattered rhonchi and bibasilar rales, no fever or chills, no complaints of chest discomfort, patient does get anxious at times, she has Xanax as needed. Chest x-ray today shows bilateral airspace disease similar to the prior exam. Patient remains on Baricitinib, Decadron, Eliquis. Today's labs have been reviewed, white blood cell count 11.9, hemoglobin is 12.6, sodium is 139, potassium is 4.9, chloride is 109, BUN is 41, creatinine 0.85. No nausea or vomiting, she is tolerating oral intake, her intake is fair. On 01/27/2021 patient seen in follow-up on selective care unit, she is sitting up in the chair, in no acute distress, her FiO2 is currently down to 6 L and her pulse ox is 94%, she is breathing fairly comfortably, no complaints of chest discomfort. Her A. fib is controlled, on Eliquis for anticoagulation, remains on oral amiodarone at this time. Remains on oral Decadron 6 mg daily. Echocardiogram showed evidence of possible left to left shunt, cardiology is following, and the recommendation is to continue with supportive treatment for coughing at this time. No fever or chills. Yesterday's chest x-ray showed bilateral airspace disease no evident pneumothorax or pleural effusion. No bilateral extremity swelling, clinically patient does not look fluid overloaded. Today's labs have been reviewed, white blood cell count is 12.1, hemoglobin is 12.9, sodium is 139, potassium is 5.0, BUN is 37 creatinine 0.82, proBNP came back elevated at 9,990 On 01/28/2021 patient seen in follow-up on selective care unit. She is very fatigued, but appears to be no acute distress, does not appear to be in any respiratory difficulty. 5 to is currently down to 4 L and her pulse ox is 96%, her FiO2 was subsequently cut back to 2 L. Lung sounds are clear, no rhonchi, no wheezing, minimal cough, she's been afebrile, hemodynamically she is stable. She is weak, she very easily fatigues with any activity, the recommendation has been made for group home facility placement for rehab after discharge. Today labs have been noted. Blood cell count is 14.1, hemoglobin is 13, electrolytes and renal profile are unremarkable, BUN is 41, creatinine 0.89. Patient continues on Decadron 6 mg daily, she did start on IV Lasix. Not fluid balance is difficult to estimate as no acute intake and output is available to us. Objective - Vital Signs Vital signs: Vital Signs Temp 98.8 F 01/28/21 12:07 Pulse 102 H 01/28/21 12:07 Resp 18 01/28/21 13:25 BP 100/65 01/28/21 12:07 Pulse Ox 94 L 01/28/21 12:07 Intake & Output 01/27/21 01/28/21 01/28/21 18:59 06:59 18:59 Intake Total 960 600 Output Total 2 Balance 960 -2 600 Weight 65.3 kg 65 kg Intake: Oral 960 600 Output: Stool 2 Other: # Voids 1 1 # Bowel Movements 1 1 - Exam GENERAL EXAM: Alert, very pleasant, 85-year-old white female, on 4 L per high flow nasal cannula with pulse ox of 96% comfortable in no apparent distress. HEAD: Normocephalic/atraumatic. EYES: Normal reaction of pupils, equal size. Conjunctiva pink, sclera white. NOSE: Clear with pink turbinates. THROAT: No erythema or exudates. NECK: No masses, no JVD, no thyroid enlargement, no adenopathy. CHEST: No chest wall deformity. Symmetrical expansion. LUNGS: Equal air entry with bilateral crackles CVS: Irregular rate and rhythm, normal S1 and S2, no gallops, no murmurs, no rubs ABDOMEN: Soft, nontender. No hepatosplenomegaly, normal bowel sounds, no guarding or rigidity. EXTREMITIES: No clubbing, no edema, no cyanosis, 2+ pulses and upper and lower extremities. MUSCULOSKELETAL: Muscle strength and tone normal. SPINE: No scoliosis or deformity SKIN: No rashes CENTRAL NERVOUS SYSTEM: Alert and oriented -3. No focal deficits, tone is normal in all 4 extremities. PSYCHIATRIC: Alert and oriented -3. Appropriate affect. Intact judgment and insight. - Labs CBC & Chem 7: 01/28/21 08:06 01/28/21 08:06 Labs: Abnormal Lab Results - Last 24 Hours (Table) 01/28/21 01/28/21 Range/Units 08:06 08:06 WBC 14.1 H (3.8-10.6) k/uL Neutrophils # (Manual) 11.80 H (1.3-7.7) k/uL Metamyelocytes # (Man) 0.14 H (0) k/uL Myelocytes # (Manual) 0.28 H (0) k/uL BUN 41 H (7-17) mg/dL Calcium 8.2 L (8.4-10.2) mg/dL ALT 50 H (4-34) U/L Total Protein 5.2 L (6.3-8.2) g/dL Albumin 2.7 L (3.5-5.0) g/dL Assessment and Plan Plan: Assessment: #1. Acute hypoxic respiratory failure secondary to acute: 19 pneumonia, patient is a non-vaccinated individual, she was outside the window for Remdesivir. She is currently on Baricitinib #2. A. fib with rapid ventricular response, patient remains in A. fib with RVR with a rate of 134 BPM today, she is currently on metoprolol 25 mg 3 times a day, digoxin, oral Cardizem, and Eliquis #3. Elevated inflammatory markers related to viral pneumonia #4. Chronic atrial fibrillation #5. Anxiety 6. Nonsmoker Plan: Continue weaning FiO2 Patient currently down to 2 L of oxygen She's been started on IV diuretics, She is breathing comfortably Daily weight, accurate intake and output Vital signs are stable Generally patient is very weak She would benefit from subacute rehab placement after discharge From pulmonary perspective she stable for discharge to [facility] once arrangements are completed She will need outpatient follow-up with Dr. Melendez in the office in 2 weeks Baricitinib can be discontinued upon discharge And patient is already on oral anticoagulation for atrial fibrillation Remains in A. fib at the rate is controlled I performed a history & physical examination of the patient and discussed their management with my nurse practitioner, Isabella Coleman. I reviewed the nurse practitioner's note and agree with the documented findings and plan of care. Lung sounds are positive for bilateral crackles throughout the lung richards. The findings and the impression was discussed with the patient. I attest to the documentation by the nurse practitioner. Time with Patient: Less than 30
--- NOTE | 2021-01-28 20:55 | P.PN ---
Subjective Progress Note Date: 01/28/21 Principal diagnosis: shortness of breath Patient is an 85-year-old female with glaucoma and heart murmur as a child who initially presented at [facility] secondary to weakness, fever, and nonproductive cough. She underwent an extensive evaluation which showed a chest x-ray with bilateral pneumonia. She was started on Zithromax and subsequently became hypoxic and unresponsive. She did require a nonrebreather mask and initiation of Solu-Medrol and bronchodilators. Cold the testing came back positive. She was transferred here for further evaluation. On arrival here she was noted be in A. fib with RVR she was started on a Cardizem drip and cardiology was consulted. On 01/23 she had increasing O2 requirements and Baracitinib was added. echo came back with EF 30-35%, PFO, moderate with bicuspid valve. Her oxygenation rapidly improved on 01/26. She was having some fluid overload with elevated BNP and was started on Lasix. Her oxygen levels continued to improve. Patient seen and examined at bedside. . Worried about how she is going to cough out her covert. We can explain a don't cough out COVID but that slowly resolved over time. Denies any chest discomfort. No nausea or vomiting. Still feeling very weak. General: non toxic, no distress, appears younger than stated age Derm: warm, dry Head: atraumatic, normocephalic, symmetric Eyes: EOMI, no lid lag, anicteric sclera Mouth: no lip lesion, mucus membranes moist Cardiovascular: S1S2 irregular, no murmur, positive posterior tibial pulse bilateral, Lungs: Course breath sounds bilateral, no rhonchi, no rales , no accessory muscle use Abdominal: soft, nontender to palpation, no guarding, no appreciable organomegaly Ext: no gross muscle atrophy, no edema, no contractures Neuro: CN II-XI grossly intact, no focal neuro deficits Psych: Alert, oriented, appropriate affect COVID-19 pneumonia Acute hypoxic respiratory failure -Pulmonary was consulted -She was started on Decadron day #7, vitamin C, vitamin D, and zinc - Baracitinib dose #3/12 - wean O2 as able A. 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%, unknown type - Lasix - Patient refused anticoagulation for atrial fibrillation -Cardiology recommendations: Metoprolol 75 mg 3 times daily, digoxin will need outpatient follow-up, amiodarone oral -Telemetry -Eliquis -Strict I's and O's, daily weights Transaminitis -Mild -Likely secondary to Covid -Follow up on an outpatient basis DVT prophylaxis: Eliquis Discussed with: Patient, nursing Anticipated discharge: Cannot go to rehab until 02/01 when cleared from Covid precautions Anticipated discharge place: [facility] A total of 35 minutes was spent on the care of this complex patient more than 50% of the time was spent in counseling and care coordination. Objective - Vital Signs Vital signs: Vital Signs Temp 97.5 F L 01/28/21 19:33 Pulse 94 01/28/21 19:33 Resp 20 01/28/21 19:33 BP 107/50 01/28/21 19:33 Pulse Ox 93 L 01/28/21 19:33 Intake & Output 01/28/21 01/28/21 01/29/21 06:59 18:59 06:59 Intake Total 840 Output Total 2 Balance -2 840 Weight 65 kg Intake: Oral 840 Output: Stool 2 Other: # Voids 1 # Bowel Movements 1 - Labs CBC & Chem 7: 01/28/21 08:06 01/28/21 08:06 Labs: Abnormal Lab Results - Last 24 Hours (Table) 01/28/21 01/28/21 Range/Units 08:06 08:06 WBC 14.1 H (3.8-10.6) k/uL Neutrophils # (Manual) 11.80 H (1.3-7.7) k/uL Metamyelocytes # (Man) 0.14 H (0) k/uL Myelocytes # (Manual) 0.28 H (0) k/uL BUN 41 H (7-17) mg/dL Calcium 8.2 L (8.4-10.2) mg/dL ALT 50 H (4-34) U/L Total Protein 5.2 L (6.3-8.2) g/dL Albumin 2.7 L (3.5-5.0) g/dL
[2021-01-28] MEDS: BARICITINIB 2 MG TABLET PO SCH (21:09)
[2021-01-28] MEDS: MELATONIN 5 MG TABLET PO SCH (21:11)
[2021-01-29] MEDS: dexAMETHasone 2 MG TAB PO SCH (09:13)
[2021-01-29] MEDS: ZINC SULFATE 220 MG CAP PO SCH (09:13)
[2021-01-29] MEDS: METOPROLOL TARTRATE 25 MG TAB PO SCH ×2 (09:13→17:15)
[2021-01-29] MEDS: FUROSEMIDE 10 MG/ML 4 ML VIAL IV SCH (09:14)
[2021-01-29] MEDS: CHOLECALCIFEROL 25 MCG (1000 IU) TABLET PO SCH (09:14)
[2021-01-29] MEDS: ALPRAZolam 0.5 MG TAB PO PRN (09:14)
[2021-01-29] MEDS: ASCORBIC ACID 500 MG TAB PO SCH ×2 (09:14→21:53)
[2021-01-29] MEDS: APIXABAN 2.5 MG TABLET PO SCH ×2 (09:14→21:54)
[2021-01-29] MEDS: AMIODARONE 200 MG TAB PO SCH ×2 (09:14→21:51)
[2021-01-29] MEDS: DIGOXIN 250 MCG TAB PO SCH (09:14)
[2021-01-29 10:47] LABS: Basophils # (A) 0.1 k/uL (0-0.2); Basophils % (A) 1 %; Eosinophils % (A) 0 %; HCT 43.4 % (34.0-46.0); HGB 13.9 gm/dL (11.4-16.0); Lymphocytes # (A) 1.4 k/uL (1.0-4.8); Lymphocytes % (A) 8 %; MCH 31.2 pg (25.0-35.0); MCV 97.5 fL (80.0-100.0); Monocytes # (A) 0.7 k/uL (0-1.0); Monocytes % (A) 4 %; Neutrophils # (A) 14.5 k/uL (1.3-7.7); Neutrophils % (A) 86 %; Platelet Count 532 k/uL (150-450); RBC 4.45 m/uL (3.80-5.40); RDW 13.1 % (11.5-15.5); WBC 16.7 k/uL (3.8-10.6)
[2021-01-29 10:56] LABS: Albumin 3.1 g/dL (3.5-5.0); Calcium 8.4 mg/dL (8.4-10.2); Potassium 4.6 mmol/L (3.5-5.1); Total Bilirubin 0.7 mg/dL (0.2-1.3); Total Protein 5.7 g/dL (6.3-8.2)
--- NOTE | 2021-01-29 14:03 | P.PN ---
Subjective Progress Note Date: 01/29/21 Principal diagnosis: COVID-19 pneumonia, A. fib with RVR On 01/24/2021 patient seen in follow-up on selective care unit, she is currently on 15 L per high flow nasal cannula, pulse ox is 92%, she is sitting up in the chair, she is short of breath with any exertion. Does not seem to be in any acute distress, she is afebrile, hemodynamically she has been stable, patient continues on Baricitinib, Eliquis for history of atrial fibrillation, and patient is on vitamin C, D, and zinc. Today's chest x-ray shows bilateral infiltrates. Today's labs have been reviewed, sodium is 137, potassium is 4.7, chloride is 109, CO2 is 20, BUN is 44, creatinine 0.94, last d-dimer from yes terday was 0.85, LDH level was 1500, CRP was 3.3. She remains in atrial fibrillation, and the rate is still tachycardic with a rate of 134. Cardiology is following, and patient is currently on metoprolol 25 mg 3 times a day, digoxin and oral Cardizem 60 mg 3 times daily. On 01/25/2021 patient seen in follow-up on selective care unit, she is currently down to 10 L of oxygen, yesterday she was on 15 L, her pulse ox is 90-95%, she is breathing comfortably, denies any chest pain, she remains in atrial fibrillation, and she still tachycardic, her rate is between 90-120 BPM, cardiology is following, patient is on a combination of beta blockers, digoxin, and oral Cardizem, she is on Eliquis for anticoagulation, today her beta deanne dose has been adjusted, and her metoprolol was increased to 50 mg 3 times a day. Patient appears to be anxious, she does not think that she is improving, she r equires a lot of reassurance, she states she is abnormally inches person to start with. She states that she has been up out of bed, generally is weak, but appears to be in no acute distress, she is tolerating oral intake, no abdominal pain, no chest pain. She remains on Baricitinib, Decadron 6 mg daily, she is on COVID-19 vitamins, today's labs have been reviewed, her white count is 10.1, hemoglobin is 12.8, lymphocyte count is 0.8, sodium is 135, potassium is 5.0, chloride is 111, CO2 is 20, BUN is 40, creatinine 0.8, her LDH level was 1500 on 01/23/2021 and CRP is 3.3, follow-up labs are pending for today. On 01/26/2021 patient seen in follow-up on selective care unit. She is awake and alert, she is sitting up in the recliner, she is currently on 15 L of oxygen pulse ox is 95-96%, her breathing has remained stable, she gets dyspneic with exertion, but does not appear to be in any acute respiratory distress, lung sounds reveal a few scattered rhonchi and bibasilar rales, no fever or chills, no complaints of chest discomfort, patient does get anxious at times, she has Xanax as needed. Chest x-ray today shows bilateral airspace disease similar to the prior exam. Patient remains on Baricitinib, Decadron, Eliquis. Today's labs have been reviewed, white blood cell count 11.9, hemoglobin is 12.6, sodium is 139, potassium is 4.9, chloride is 109, BUN is 41, creatinine 0.85. No nausea or vomiting, she is tolerating oral intake, her intake is fair. On 01/27/2021 patient seen in follow-up on selective care unit, she is sitting up in the chair, in no acute distress, her FiO2 is currently down to 6 L and her pulse ox is 94%, she is breathing fairly comfortably, no complaints of chest discomfort. Her A. fib is controlled, on Eliquis for anticoagulation, remains on oral amiodarone at this time. Remains on oral Decadron 6 mg daily. Echocardiogram showed evidence of possible left to left shunt, cardiology is following, and the recommendation is to continue with supportive treatment for coughing at this time. No fever or chills. Yesterday's chest x-ray showed bilateral airspace disease no evident pneumothorax or pleural effusion. No bilateral extremity swelling, clinically patient does not look fluid overloaded. Today's labs have been reviewed, white blood cell count is 12.1, hemoglobin is 12.9, sodium is 139, potassium is 5.0, BUN is 37 creatinine 0.82, proBNP came back elevated at 9,990 On 01/28/2021 patient seen in follow-up on selective care unit. She is very fatigued, but appears to be no acute distress, does not appear to be in any respiratory difficulty. 5 to is currently down to 4 L and her pulse ox is 96%, her FiO2 was subsequently cut back to 2 L. Lung sounds are clear, no rhonchi, no wheezing, minimal cough, she's been afebrile, hemodynamically she is stable. She is weak, she very easily fatigues with any activity, the recommendation has been made for residential facility placement for rehab after discharge. Today labs have been noted. Blood cell count is 14.1, hemoglobin is 13, electrolytes and renal profile are unremarkable, BUN is 41, creatinine 0.89. Patient continues on Decadron 6 mg daily, she did start on IV Lasix. Not fluid balance is difficult to estimate as no acute intake and output is available to us. On today's evaluation on 01/29/2021 patient seen in follow-up on [facility] care unit, she is breathing comfortably, her FiO2 is currently down to 2 L per pulse ox 95%, hemodynamically stable. No Events overnight, no new chest x-rays, today's labs have been reviewed, her white blood cell, 60.7, hemoglobin is 13.9, sodium is 136, potassium is 4.6, CO2 is 32, BUN is 45, creatinine 0.92. Remains on maintenance dose of IV Lasix at 40 mg daily, and she is maintaining negative fluid balance. Patient continues on Baricitinib, Decadron, and Eliquis for atrial fibrillation. Generally she is weak, appetite is poor. Currently discharge arrangements are being made for discharge to [facility] on 02/01/2021 per: Facility COVID guidelines Objective - Vital Signs Vital signs: Vital Signs Temp 96.9 F L 01/29/21 11:55 Pulse 92 01/29/21 11:55 Resp 20 01/29/21 11:55 BP 113/71 01/29/21 11:55 Pulse Ox 95 01/29/21 11:55 Intake & Output 01/28/21 01/29/21 01/29/21 18:59 06:59 18:59 Intake Total 840 240 Output Total 500 Balance 840 -260 Weight 65.5 kg Intake: Oral 840 240 Output: Urine 500 Other: # Voids 1 1 # Bowel Movements 1 - Exam GENERAL EXAM: Alert, very pleasant, 85-year-old white female, on 2 L per high f low nasal cannula with pulse ox of 96% comfortable in no apparent distress. HEAD: Normocephalic/atraumatic. EYES: Normal reaction of pupils, equal size. Conjunctiva pink, sclera white. NOSE: Clear with pink turbinates. THROAT: No erythema or exudates. NECK: No masses, no JVD, no thyroid enlargement, no adenopathy. CHEST: No chest wall deformity. Symmetrical expansion. LUNGS: Equal air entry with bilateral crackles CVS: Irregular rate and rhythm, normal S1 and S2, no gallops, no murmurs, no ru bs ABDOMEN: Soft, nontender. No hepatosplenomegaly, normal bowel sounds, no guarding or rigidity. EXTREMITIES: No clubbing, no edema, no cyanosis, 2+ pulses and upper and lower extremities. MUSCULOSKELETAL: Muscle strength and tone normal. SPINE: No scoliosis or deformity SKIN: No rashes CENTRAL NERVOUS SYSTEM: Alert and oriented -3. No focal deficits, tone is normal in all 4 extremities. PSYCHIATRIC: Alert and oriented -3. Appropriate affect. Intact judgment and insight. - Labs CBC & Chem 7: 01/29/21 10:25 01/29/21 10:25 Labs: Abnormal Lab Results - Last 24 Hours (Table) 01/29/21 01/29/21 Range/Units 10:25 10:25 WBC 16.7 H (3.8-10.6) k/uL Plt Count 532 H (150-450) k/uL Neutrophils # 14.5 H (1.3-7.7) k/uL Sodium 136 L (137-145) mmol/L Carbon Dioxide 32 H (22-30) mmol/L BUN 45 H (7-17) mg/dL Glucose 112 H (74-99) mg/dL ALT 52 H (4-34) U/L Total Protein 5.7 L (6.3-8.2) g/dL Albumin 3.1 L (3.5-5.0) g/dL Assessment and Plan Plan: Assessment: #1. Acute hypoxic respiratory failure secondary to acute: 19 pneumonia, patient is a non-vaccinated individual, she was outside the window for Remdesivir. She is currently on Baricitinib #2. A. fib with rapid ventricular response, patient remains in A. fib with RVR with a rate of 134 BPM today, she is currently on metoprolol 25 mg 3 times a day, digoxin, oral Cardizem, and Eliquis #3. Elevated inflammatory markers related to viral pneumonia #4. Chronic atrial fibrillation, on Eliquis #5. Anxiety 6. Nonsmoker Plan: Continue weaning FiO2 Patient currently down to 2 L of oxygen She has maintained stable oxygenation on 2 L Vital signs are stable Continue current medical treatment Continue Baricitinib, Decadron and Eliquis Continue COVID 19 vitamins Baricitinib can be discontinued upon discharge Discharge planning is making arrangements for discharge to [facility] on 02/01/2021 I performed a history & physical examination of the patient and discussed their management with my nurse practitioner, Isabella Coleman. I reviewed the nurse practitioner's note and agree with the documented findings and plan of care. Lung sounds are positive for bilateral crackles throughout the lung richards. The findings and the impression was discussed with the patient. I attest to the documentation by the nurse practitioner. Time with Patient: Less than 30
--- NOTE | 2021-01-29 15:38 | P.PN ---
Subjective Progress Note Date: 01/29/21 Principal diagnosis: shortness of breath Patient is an 85-year-old female with glaucoma and heart murmur as a child who initially presented at [facility] secondary to weakness, fever, and nonproductive cough. She underwent an extensive evaluation which showed a chest x-ray with bilateral pneumonia. She was started on Zithromax and subsequently became hypoxic and unresponsive. She did require a nonrebreather mask and initiation of Solu-Medrol and bronchodilators. Cold the testing came back positive. She was transferred here for further evaluation. On arrival here she was noted be in A. fib with RVR she was started on a Cardizem drip and cardiology was consulted. On 01/23 she had increasing O2 requirements and Baracitinib was added. echo came back with EF 30-35%, PFO, moderate with bicuspid valve. Her oxygenation rapidly improved on 01/26. She was having some fluid overload with elevated BNP and was started on Lasix. Her oxygen levels continued to improve. Patient seen and examined at bedside. No chest pain, breathing is stable, no nausea, no vomiting, no diarrhea. Denies dizziness and chest pain. General: non toxic, no distress, appears younger than stated age Derm: warm, dry Head: atraumatic, normocephalic, symmetric Eyes: EOMI, no lid lag, anicteric sclera Mouth: no lip lesion, mucus membranes moist Cardiovascular: S1S2 irregular, no murmur, positive posterior tibial pulse bilateral, Lungs: Course breath sounds bilateral, no rhonchi, no rales , no accessory muscle use Abdominal: soft, nontender to palpation, no guarding, no appreciable organomegaly Ext: no gross muscle atrophy, no edema, no contractures Neuro: CN II-XI grossly intact, no focal neuro deficits Psych: Alert, oriented, appropriate affect COVID-19 pneumonia Acute hypoxic respiratory failure -Pulmonary was consulted -She was started on Decadron day #8, vitamin C, vitamin D, and zinc - Baracitinib dose #4/12 - wean O2 as able A. 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%, unknown type 2 Second Pauses on tele -Lasix -Patient refused anticoagulation for atrial fibrillation -Cardiology recommendations: Metoprolol 75 mg 3 times daily, digoxin will need outpatient follow-up, amiodarone oral- asked to reconsult -Telemetry -Eliquis -Strict I's and O's, daily weights Transaminitis -Mild -Likely secondary to Covid -Follow up on an outpatient basis DVT prophylaxis: Tremaine Discussed with: Patient, nursing Anticipated discharge: Cannot go to rehab until 02/01 when cleared from Covid precautions Anticipated discharge place: [facility] A total of 35 minutes was spent on the care of this complex patient more than 50% of the time was spent in counseling and care coordination. Objective - Vital Signs Vital signs: Vital Signs Temp 96.9 F L 01/29/21 11:55 Pulse 92 01/29/21 11:55 Resp 20 01/29/21 11:55 BP 113/71 01/29/21 11:55 Pulse Ox 95 01/29/21 11:55 Intake & Output 01/28/21 01/29/21 01/29/21 18:59 06:59 18:59 Intake Total 840 420 Output Total 500 Balance 840 -80 Weight 65.5 kg Intake: Oral 840 420 Output: Urine 500 Other: # Voids 1 1 # Bowel Movements 1 - Labs CBC & Chem 7: 01/29/21 10:25 01/29/21 10:25 Labs: Abnormal Lab Results - Last 24 Hours (Table) 01/29/21 01/29/21 Range/Units 10:25 10:25 WBC 16.7 H (3.8-10.6) k/uL Plt Count 532 H (150-450) k/uL Neutrophils # 14.5 H (1.3-7.7) k/uL Sodium 136 L (137-145) mmol/L Carbon Dioxide 32 H (22-30) mmol/L BUN 45 H (7-17) mg/dL Glucose 112 H (74-99) mg/dL ALT 52 H (4-34) U/L Total Protein 5.7 L (6.3-8.2) g/dL Albumin 3.1 L (3.5-5.0) g/dL
[2021-01-29] MEDS ORDERED: BARICITINIB 2 MG TABLET PO SCH (20:00)
[2021-01-29] MEDS: MELATONIN 5 MG TABLET PO SCH (21:51)
[2021-01-30] MEDS: METOPROLOL TARTRATE 50 MG TAB PO SCH ×3 (05:29→16:40)
[2021-01-30] MEDS: dexAMETHasone 2 MG TAB PO SCH (08:15)
[2021-01-30] MEDS: ALPRAZolam 0.5 MG TAB PO PRN (08:15)
[2021-01-30] MEDS: CHOLECALCIFEROL 25 MCG (1000 IU) TABLET PO SCH (08:16)
[2021-01-30] MEDS: AMIODARONE 200 MG TAB PO SCH ×2 (08:16→23:37)
[2021-01-30] MEDS: ZINC SULFATE 220 MG CAP PO SCH (08:16)
[2021-01-30] MEDS: ASCORBIC ACID 500 MG TAB PO SCH ×2 (08:16→21:55)
[2021-01-30] MEDS: DIGOXIN 250 MCG TAB PO SCH (08:16)
[2021-01-30] MEDS: FUROSEMIDE 40 MG TAB PO SCH (08:16)
[2021-01-30] MEDS: APIXABAN 2.5 MG TABLET PO SCH ×2 (08:16→21:55)
[2021-01-30 10:58] LABS: Basophils # (A) 0.1 k/uL (0-0.2); Basophils % (A) 0 %; Eosinophils % (A) 0 %; HCT 42.3 % (34.0-46.0); Lymphocytes % (A) 6 %; MCH 31.4 pg (25.0-35.0); MCHC 33.2 g/dL (31.0-37.0); MCV 94.4 fL (80.0-100.0); Mean Platelet Volume 6.8; Monocytes # (A) 0.5 k/uL (0-1.0); Monocytes % (A) 3 %; Neutrophils # (A) 15.9 k/uL (1.3-7.7); Neutrophils % (A) 90 %; Platelet Count 560 k/uL (150-450); RBC 4.48 m/uL (3.80-5.40); RDW 13.6 % (11.5-15.5); WBC 17.6 k/uL (3.8-10.6)
[2021-01-30 11:14] LABS: Albumin 2.9 g/dL (3.5-5.0); Calcium 8.1 mg/dL (8.4-10.2); Potassium 4.7 mmol/L (3.5-5.1); Total Bilirubin 0.8 mg/dL (0.2-1.3); Total Protein 5.5 g/dL (6.3-8.2)
--- NOTE | 2021-01-30 14:24 | P.PN ---
Subjective Progress Note Date: 01/30/21 Principal diagnosis: shortness of breath Patient is an 85-year-old female with glaucoma and heart murmur as a child who initially presented at [facility] secondary to weakness, fever, and nonproductive cough. She underwent an extensive evaluation which showed a chest x-ray with bilateral pneumonia. She was started on Zithromax and subsequently became hypoxic and unresponsive. She did require a nonrebreather mask and initiation of Solu-Medrol and bronchodilators. Cold the testing came back positive. She was transferred here for further evaluation. On arrival here she was noted be in A. fib with RVR she was started on a Cardizem drip and cardiology was consulted. On 01/23 she had increasing O2 requirements and Baracitinib was added. echo came back with EF 30-35%, PFO, moderate with bicuspid valve. Her oxygenation rapidly improved on 01/26. She was having some fluid overload with elevated BNP and was started on Lasix. Her oxygen levels continued to improve. Patient seen and examined at bedside. Sleeping arouses of voice, states no nausea, no lightheadness, no chest pain, shortness of breath is unchagned. General: non toxic, no distress, appears younger than stated age Derm: warm, dry Head: atraumatic, normocephalic, symmetric Eyes: EOMI, no lid lag, anicteric sclera Mouth: no lip lesion, mucus membranes moist Cardiovascular: S1S2 regular, no murmur, positive posterior tibial pulse bilateral, Lungs: Course breath sounds bilateral, no rhonchi, no rales , no accessory muscle use Abdominal: soft, nontender to palpation, no guarding, no appreciable organomegaly Ext: no gross muscle atrophy, no edema, no contractures Neuro: CN II-XI grossly intact, no focal neuro deficits Psych: Alert, oriented, appropriate affect COVID-19 pneumonia Acute hypoxic respiratory failure -Pulmonary recs -She was started on Decadron day #9, vitamin C, vitamin D, and zinc - Baracitinib dose #5/12 - wean O2 as able A. 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%, unknown type 2 Second Pauses on tele, converted with bradycardia -Lasix -Patient refused anticoagulation for atrial fibrillation -Cardiology recommendations: had signed off, asked to reconsult: Amino 400 NG BID X 7 days, then 200 mg BID -Stop digoxin, stop metoprolol -Telemetry -Eliquis -Strict I's and O's, daily weights Transaminitis -Mild -Likely secondary to Covid -Follow up on an outpatient basis DVT prophylaxis: Tremaine Discussed with: Patient, nursing Anticipated discharge: Cannot go to rehab until 02/01 when cleared from Covid precautions Anticipated discharge place: [facility] A total of 35 minutes was spent on the care of this complex patient more than 50% of the time was spent in counseling and care coordination. Objective - Vital Signs Vital signs: Vital Signs Temp 98.0 F 01/30/21 08:17 Pulse 110 H 01/30/21 08:17 Resp 18 01/30/21 08:17 BP 110/61 01/30/21 08:17 Pulse Ox 95 01/30/21 08:17 Intake & Output 01/29/21 01/30/21 01/30/21 19:59 06:59 18:59 Intake Total 180 Output Total Balance 180 Weight Intake: Oral 180 Output: Urine Other: # Voids 1 # Bowel Movements 1 - Labs CBC & Chem 7: 01/30/21 10:42 01/30/21 10:42 Labs: Abnormal Lab Results - Last 24 Hours (Table) 01/30/21 01/30/21 Range/Units 10:42 10:42 WBC 17.6 H (3.8-10.6) k/uL Plt Count 560 H (150-450) k/uL Neutrophils # 15.9 H (1.3-7.7) k/uL Sodium 133 L (137-145) mmol/L Carbon Dioxide 31 H (22-30) mmol/L BUN 45 H (7-17) mg/dL Glucose 111 H (74-99) mg/dL Calcium 8.1 L (8.4-10.2) mg/dL ALT 43 H (4-34) U/L Total Protein 5.5 L (6.3-8.2) g/dL Albumin 2.9 L (3.5-5.0) g/dL
--- NOTE | 2021-01-30 17:29 | P.PN ---
Subjective CHIEF COMPLAINT: a-fib HISTORY OF PRESENT ILLNESS: This is a 85 year old female with a past medical history significant for atrial fibrillation. She was admitted to the hospital secondary to Covid. She remains in atrial for ablation with a heart rate between [id number]. Patient's beta deanne was increased yesterday to 50 mg twice a day. Blood pressure 93/61. She is on 15 L high flow nasal cannula. 01/25/2021 Patient remains in atrial fibrillation with heart rates ranging between 90 and 120. Patient's blood pressure has improved with a recent reading of 113/80. She remains on 10 L nasal cannula. Echocardiogram completed reveals ejection fraction 30-35%, patent jay ovale present with [id number] shunt, bicuspid aortic valve, moderate aortic stenosis, mild mitral regurgitation, mild tricuspid regurgitation. 01/26/2021 Patient remains in atrial fibrillation with heart rates around 95-110. She is receiving metoprolol and digoxin. Her Cardizem was discontinued yesterday secondary to decreased EF. Dr. Gannon reviewed echocardiogram which reveals PFO with more left to right shunting, rather than right to left. She remains on 8 L high flow nasal cannula. Blood pressure 101/62. Addendum entered and electronically signed by Kendall Gannon DO 01/26/21 18:56: Patient with CMP EF 30-35% unknown baseline may be related to tachy induced or from COVID. Echo mentions PFO with right to left shunt however only left to right shunt noted on echo, prominent Eustachian valve and moderate . No significant elevated RVSP and do not suspect Eiseinmenger's physiology. Continue with supportive COVID treatment. Increased rate control for Afib. Prognosis guarded. 01/27/2021 Patient remains in atrial fibrillation with heart rates ranging between [id number]. Blood pressure 122/78. She is currently receiving metoprolol 75 mg 3 times a day and digoxin 250 g daily 01/28/2021 Patient remains in atrial fibrillation with controlled ventricular rate at the time of my evaluation with a heart rate ranging between 7090. Vital signs are stable. 01/30 Patient seen and examined. Patient has been having A. fib with intermittent episodes of pauses up to 3 seconds while sleeping as well as in the strapper. She denies any symptoms from this however does state she feels fatigued. She converted to normal sinus rhythm today and has been sinus bradycardia. She still complains of fatigue however more likely related to Covid. She denies any significant shortness breath. Denies any lightheadedness. PHYSICAL EXAM: Thorough physical exam not completed secondary to limited evaluation/examination due to Covid19 ASSESSMENT: Covid pneumonia Acute hypoxic respiratory failure Abnormal troponins, secondary to above Atrial fibrillation with uncontrolled ventricular rate, unknown if paroxysmal or chronic Valvular heart disease PFO Cardiomyopathy, ejection fraction 30-35%, type unknown, no previous echocardi ogram for comparison Sinus bradycardia Up to 3 second pauses while in A. fib PLAN: Patient has had difficult to control A. fib and patient was started on amiodarone, digoxin as well as metoprolol. She then however has been having intermittent episodes of pauses up to 3 seconds however has been asymptomatic. Patient converted with normal sinus rhythm however has had sinus bradycardia with heart rates in the 40s to 50s. She appears to be predominantly asymptomatic however does state is fatigued, much more likely related to Covid. Continue to hold digoxin and metoprolol and continue amiodarone. Ideally add back metoprolol as tolerated for her heart failure/Cardima myopathy. Appears euvolemic. Objective - Vital Signs Vital signs: Vital Signs Temp 98.0 F 01/30/21 08:17 Pulse 42 L 01/30/21 12:00 Resp 18 01/30/21 08:17 BP 110/61 01/30/21 08:17 Pulse Ox 95 01/30/21 08:17 Intake & Output 01/29/21 01/30/21 01/30/21 19:59 06:59 18:59 Intake Total 180 Output Total Balance 180 Weight Intake: Oral 180 Output: Urine Other: # Voids 1 # Bowel Movements 1 - Labs CBC & Chem 7: 01/30/21 10:42 01/30/21 10:42 Labs: Abnormal Lab Results - Last 24 Hours (Table) 01/30/21 01/30/21 Range/Units 10:42 10:42 WBC 17.6 H (3.8-10.6) k/uL Plt Count 560 H (150-450) k/uL Neutrophils # 15.9 H (1.3-7.7) k/uL Sodium 133 L (137-145) mmol/L Carbon Dioxide 31 H (22-30) mmol/L BUN 45 H (7-17) mg/dL Glucose 111 H (74-99) mg/dL Calcium 8.1 L (8.4-10.2) mg/dL ALT 43 H (4-34) U/L Total Protein 5.5 L (6.3-8.2) g/dL Albumin 2.9 L (3.5-5.0) g/dL
[2021-01-30] MEDS ORDERED: BARICITINIB 2 MG TABLET PO SCH (20:00)
[2021-01-30] MEDS: MELATONIN 5 MG TABLET PO SCH (21:56)
[2021-01-31] MEDS: dexAMETHasone 2 MG TAB PO SCH (08:37)
[2021-01-31] MEDS: APIXABAN 2.5 MG TABLET PO SCH ×2 (08:37→20:33)
[2021-01-31] MEDS: ZINC SULFATE 220 MG CAP PO SCH (08:38)
[2021-01-31] MEDS: FUROSEMIDE 40 MG TAB PO SCH (08:38)
[2021-01-31] MEDS: ASCORBIC ACID 500 MG TAB PO SCH ×2 (08:38→20:33)
[2021-01-31] MEDS: CHOLECALCIFEROL 25 MCG (1000 IU) TABLET PO SCH (08:38)
[2021-01-31 08:48] LABS: Albumin 2.8 g/dL (3.5-5.0); Calcium 8.2 mg/dL (8.4-10.2); Potassium 4.6 mmol/L (3.5-5.1); Total Bilirubin 0.9 mg/dL (0.2-1.3); Total Protein 5.4 g/dL (6.3-8.2)
[2021-01-31 08:49] LABS: Basophils % (A) 0 %; Eosinophils % (A) 0 %; HCT 41.9 % (34.0-46.0); HGB 13.6 gm/dL (11.4-16.0); Lymphocytes # (A) 1.1 k/uL (1.0-4.8); Lymphocytes % (A) 8 %; MCH 31.4 pg (25.0-35.0); MCHC 32.5 g/dL (31.0-37.0); MCV 96.6 fL (80.0-100.0); Mean Platelet Volume 7.3; Monocytes # (A) 0.5 k/uL (0-1.0); Monocytes % (A) 4 %; Neutrophils # (A) 12.3 k/uL (1.3-7.7); Neutrophils % (A) 88 %; Platelet Count 523 k/uL (150-450); RBC 4.34 m/uL (3.80-5.40); RDW 12.9 % (11.5-15.5)
--- NOTE | 2021-01-31 11:11 | P.PN ---
Subjective Progress Note Date: 01/31/21 On 01/24/2021 patient seen in follow-up on selective care unit, she is currently on 15 L per high flow nasal cannula, pulse ox is 92%, she is sitting up in the chair, she is short of breath with any exertion. Does not seem to be in any acute distress, she is afebrile, hemodynamically she has been stable, patient continues on Baricitinib, Eliquis for history of atrial fibrillation, and patient is on vitamin C, D, and zinc. Today's chest x-ray shows bilateral infiltrates. Today's labs have been reviewed, sodium is 137, potassium is 4.7, chloride is 109, CO2 is 20, BUN is 44, creatinine 0.94, last d-dimer from yesterday was 0.85, LDH level was 1500, CRP was 3.3. She remains in atrial fibrillation, and the rate is still tachycardic with a rate of 134. Cardiology is following, and patient is currently on metoprolol 25 mg 3 times a day, digoxin and oral Cardizem 60 mg 3 times daily. On 01/25/2021 patient seen in follow-up on selective care unit, she is currently down to 10 L of oxygen, yesterday she was on 15 L, her pulse ox is 90-95%, she is breathing comfortably, denies any chest pain, she remains in atrial fibrillation, and she still tachycardic, her rate is between 90-120 BPM, car diology is following, patient is on a combination of beta blockers, digoxin, and oral Cardizem, she is on Eliquis for anticoagulation, today her beta deanne dose has been adjusted, and her metoprolol was increased to 50 mg 3 times a day. Patient appears to be anxious, she does not think that she is improving, she requires a lot of reassurance, she states she is abnormally inches person to start with. She states that she has been up out of bed, generally is weak, but appears to be in no acute distress, she is tolerating oral intake, no abdominal pain, no chest pain. She remains on Baricitinib, Decadron 6 mg daily, she is on COVID-19 vitamins, today's labs have been reviewed, her white count is 10.1, hemoglobin is 12.8, lymphocyte count is 0.8, sodium is 135, potassium is 5.0, chloride is 111, CO2 is 20, BUN is 40, creatinine 0.8, her LDH level was 1500 on 01/23/2021 and CRP is 3.3, follow-up labs are pending for today. On 01/26/2021 patient seen in follow-up on selective care unit. She is awake and alert, she is sitting up in the recliner, she is currently on 15 L of oxygen pulse ox is 95-96%, her breathing has remained stable, she gets dyspneic with exertion, but does not appear to be in any acute respiratory distress, lung sounds reveal a few scattered rhonchi and bibasilar rales, no fever or chills, no complaints of chest discomfort, patient does get anxious at times, she has Xanax as needed. Chest x-ray today shows bilateral airspace disease similar to the prior exam. Patient remains on Baricitinib, Decadron, Eliquis. Today's labs have been reviewed, white blood cell count 11.9, hemoglobin is 12.6, sodium is 139, potassium is 4.9, chloride is 109, BUN is 41, creatinine 0.85. No nausea or vomiting, she is tolerating oral intake, her intake is fair. On 01/27/2021 patient seen in follow-up on selective care unit, she is sitting up in the chair, in no acute distress, her FiO2 is currently down to 6 L and her pulse ox is 94%, she is breathing fairly comfortably, no complaints of chest discomfort. Her A. fib is controlled, on Eliquis for anticoagulation, remains on oral amiodarone at this time. Remains on oral Decadron 6 mg daily. Echocardiogram showed evidence of possible left to left shunt, cardiology is following, and the recommendation is to continue with supportive treatment for coughing at this time. No fever or chills. Yesterday's chest x-ray showed bilateral airspace disease no evident pneumothorax or pleural effusion. No bilateral extremity swelling, clinically patient does not look fluid overloaded. Today's labs have been reviewed, white blood cell count is 12.1, hemoglobin is 12.9, sodium is 139, potassium is 5.0, BUN is 37 creatinine 0.82, proBNP came back elevated at 9,990 On 01/28/2021 patient seen in follow-up on selective care unit. She is very fatigued, but appears to be no acute distress, does not appear to be in any respiratory difficulty. 5 to is currently down to 4 L and her pulse ox is 96%, her FiO2 was subsequently cut back to 2 L. Lung sounds are clear, no rhonchi, no wheezing, minimal cough, she's been afebrile, hemodynamically she is stable. She is weak, she very easily fatigues with any activity, the recommendation has been made for group home facility placement for rehab after discharge. Today labs have been noted. Blood cell count is 14.1, hemoglobin is 13, electrolytes and renal profile are unremarkable, BUN is 41, creatinine 0.89. Patient continues on Decadron 6 mg daily, she did start on IV Lasix. Not fluid balance is difficult to estimate as no acute intake and output is available to us. On today's evaluation on 01/29/2021 patient seen in follow-up on selective care unit, she is breathing comfortably, her FiO2 is currently down to 2 L per pulse ox 95%, hemodynamically stable. No Events overnight, no new chest x-rays, today's labs have been reviewed, her white blood cell, 60.7, hemoglobin is 13.9, sodium is 136, potassium is 4.6, CO2 is 32, BUN is 45, creatinine 0.92. Remains on maintenance dose of IV Lasix at 40 mg daily, and she is maintaining negative fluid balance. Patient continues on Baricitinib, Decadron, and Eliquis for atrial fibrillation. Generally she is weak, appetite is poor. Currently discharge arrangements are being made for discharge to [facility] on 02/01/2021 per: Facility COVID guidelines On 01/31/2021, I'm seeing the patient for a follow-up. She remains on room air oxygen. Doing well. Sitting up on a chair. The plan is to transfer this patient to [facility]. She remains on Decadron and Baricitinib. She is also on long-term and coagulation regarding nature fibrillation and the patient is receiving Eliquis. She feels the patient is getting better.The white cycle is at 14 with hemoglobin 15.6, BUN is 48 and creatinine of 0.8 his sodium level is at 135. No other significant issues for now. She is on room air oxygen. She is extensively weak and she would benefit from rehabilitation and for that reason the patient is going to be transferred to [facility] on the friend. Objective - Vital Signs Vital signs: Vital Signs Temp 97.8 F 01/31/21 08:40 Pulse 44 L 01/31/21 08:40 Resp 18 01/31/21 08:52 BP 113/60 01/31/21 08:40 Pulse Ox 95 01/31/21 08:52 Intake & Output 01/30/21 01/31/21 01/31/21 18:59 06:59 18:59 Intake Total 180 480 Output Total 1 Balance 180 479 Weight 66 kg Intake: Oral 180 480 Output: Stool 1 Other: # Voids 1 1 # Bowel Movements 1 - Exam GENERAL EXAM: Alert, very pleasant, 85-year-old white female, on room air oxygen with a pulse ox of 96% HEAD: Normocephalic/atraumatic. EYES: Normal reaction of pupils, equal size. Conjunctiva pink, sclera white. NOSE: Clear with pink turbinates. THROAT: No erythema or exudates. NECK: No masses, no JVD, no thyroid enlargement, no adenopathy. CHEST: No chest wall deformity. Symmetrical expansion. LUNGS: Equal air entry with bilateral crackles CVS: Irregular rate and rhythm, normal S1 and S2, no gallops, no murmurs, no rubs ABDOMEN: Soft, nontender. No hepatosplenomegaly, normal bowel sounds, no guarding or rigidity. EXTREMITIES: No clubbing, no edema, no cyanosis, 2+ pulses and upper and lower extremities. MUSCULOSKELETAL: Muscle strength and tone normal. SPINE: No scoliosis or deformity SKIN: No rashes CENTRAL NERVOUS SYSTEM: Alert and oriented -3. No focal deficits, tone is normal in all 4 extremities. PSYCHIATRIC: Alert and oriented -3. Appropriate affect. Intact judgment and insight. - Labs CBC & Chem 7: 01/31/21 07:39 01/31/21 07:39 Labs: Abnormal Lab Results - Last 24 Hours (Table) 01/30/21 01/31/21 01/31/21 Range/Units 10:42 07:39 07:39 WBC 14.0 H (3.8-10.6) k/uL Plt Count 523 H (150-450) k/uL Neutrophils # 12.3 H (1.3-7.7) k/uL Sodium 133 L 135 L (137-145) mmol/L Carbon Dioxide 31 H 31 H (22-30) mmol/L BUN 45 H 48 H (7-17) mg/dL Glucose 111 H 101 H (74-99) mg/dL Calcium 8.1 L 8.2 L (8.4-10.2) mg/dL ALT 43 H 40 H (4-34) U/L Total Protein 5.5 L 5.4 L (6.3-8.2) g/dL Albumin 2.9 L 2.8 L (3.5-5.0) g/dL Assessment and Plan Plan: #1. Acute hypoxic respiratory failure secondary to acute COVID 19 pneumonia, patient is a non-vaccinated individual, she was outside the window for Remdesivir. She is currently on Baricitinib the patient is currently on room air oxygen and patient is profoundly weak and she will benefit from rehabilitation #2. A. fib with rapid ventricular response, patient remains in A. fib with RVR, she is currently on metoprolol 25 mg 3 times a day, digoxin, oral Cardizem, and Eliquis #3. Elevated inflammatory markers related to viral pneumonia #4. Chronic atrial fibrillation, on Eliquis #5. Anxiety 6. Nonsmoker Plan: Stop Baricitinib Continue current medical treatment The patient is on room air oxygen Complete a total of 10 day course of Decadron and Eliquis Continue COVID 19 vitamins Discharge planning is making arrangements for discharge to [facility] on 02/01/2021
[2021-01-31] MEDS: AMIODARONE 200 MG TAB PO SCH (11:15)
--- NOTE | 2021-01-31 13:42 | P.PN ---
Subjective Progress Note Date: 01/31/21 Principal diagnosis: shortness of breath Patient is an 85-year-old female with glaucoma and heart murmur as a child who initially presented at [facility] secondary to weakness, fever, and nonproductive cough. She underwent an extensive evaluation which showed a chest x-ray with bilateral pneumonia. She was started on Zithromax and subsequently became hypoxic and unresponsive. She did require a nonrebreather mask and initiation of Solu-Medrol and bronchodilators. Cold the testing came back positive. She was transferred here for further evaluation. On arrival here she was noted be in A. fib with RVR she was started on a Cardizem drip and cardiology was consulted. On 01/23 she had increasing O2 requirements and Baracitinib was added. echo came back with EF 30-35%, PFO, moderate with bicuspid valve. Her oxygenation rapidly improved on 01/26. She was having some fluid overload with elevated BNP and was started on Lasix. Her oxygen levels continued to improve and she was taken off O2 on 01/30/21. Patient seen and examined at bedside. Awake and anxious, denies shortness of breath, no chest pain, eating and drinking well. General: non toxic, no distress, appears younger than stated age Derm: warm, dry Head: atraumatic, normocephalic, symmetric Eyes: EOMI, no lid lag, anicteric sclera Mouth: no lip lesion, mucus membranes moist Cardiovascular: S1S2 regular, no murmur, positive posterior tibial pulse bilateral, Lungs: Course breath sounds bilateral, no rhonchi, no rales , no accessory muscle use Abdominal: soft, nontender to palpation, no guarding, no appreciable organomegaly Ext: no gross muscle atrophy, no edema, no contractures Neuro: CN II-XI grossly intact, no focal neuro deficits Psych: Alert, oriented, appropriate affect COVID-19 pneumonia Acute hypoxic respiratory failure - Pulmonary recs - She was started on Decadron completed vitamin C, vitamin D, and zinc - Baracitinib completed - wean O2 as able A. 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%, unknown type 2 Second Pauses on tele, converted with bradycardia -Lasix -Cardiology recommendations: had signed off, asked to reconsult: Amino 200 mg dialy -off digoxin, stop metoprolol -Telemetry -Eliquis -Strict I's and O's, daily weights Transaminitis -Mild -Likely secondary to Covid -Follow up on an outpatient basis DVT prophylaxis: Tremaine Discussed with: Patient, nursing Anticipated discharge: Cannot go to rehab until 02/01 when cleared from Covid precautions Anticipated discharge place: [facility] A total of 35 minutes was spent on the care of this complex patient more than 50% of the time was spent in counseling and care coordination. Objective - Vital Signs Vital signs: Vital Signs Temp 97.9 F 01/31/21 11:59 Pulse 44 L 01/31/21 11:59 Resp 18 01/31/21 11:59 BP 99/61 01/31/21 11:59 Pulse Ox 95 01/31/21 11:59 Intake & Output 01/30/21 01/31/21 01/31/21 18:59 06:59 18:59 Intake Total 180 480 Output Total 1 Balance 180 479 Weight 66 kg Intake: Oral 180 480 Output: Stool 1 Other: # Voids 1 1 # Bowel Movements 1 - Labs CBC & Chem 7: 01/31/21 07:39 01/31/21 07:39 Labs: Abnormal Lab Results - Last 24 Hours (Table) 01/31/21 01/31/21 Range/Units 07:39 07:39 WBC 14.0 H (3.8-10.6) k/uL Plt Count 523 H (150-450) k/uL Neutrophils # 12.3 H (1.3-7.7) k/uL Sodium 135 L (137-145) mmol/L Carbon Dioxide 31 H (22-30) mmol/L BUN 48 H (7-17) mg/dL Glucose 101 H (74-99) mg/dL Calcium 8.2 L (8.4-10.2) mg/dL ALT 40 H (4-34) U/L Total Protein 5.4 L (6.3-8.2) g/dL Albumin 2.8 L (3.5-5.0) g/dL
--- NOTE | 2021-01-31 14:35 | P.PN ---
Subjective Progress Note Date: 01/31/21 CHIEF COMPLAINT: a-fib HISTORY OF PRESENT ILLNESS: This is a 85 year old female with a past medical history significant for atrial fibrillation. She was admitted to the hospital secondary to Covid. She remains in atrial for ablation with a heart rate between [id number]. Patient's beta deanne was increased yesterday to 50 mg twice a day. Blood pressure 93/61. She is on 15 L high flow nasal cannula. 01/25/2021 Patient remains in atrial fibrillation with heart rates ranging between 90 and 120. Patient's blood pressure has improved with a recent reading of 113/80. She remains on 10 L nasal cannula. Echocardiogram completed reveals ejection fraction 30-35%, patent jay ovale present with [id number] shunt, bicuspid aortic valve, moderate aortic stenosis, mild mitral regurgitation, mild tricuspid regurgitation. 01/26/2021 Patient remains in atrial fibrillation with heart rates around 95-110. She is receiving metoprolol and digoxin. Her Cardizem was discontinued yesterday secondary to decreased EF. Dr. Gannon reviewed echocardiogram which reveals PFO with more left to right shunting, rather than right to left. She remains on 8 L high flow nasal cannula. Blood pressure 101/62. Addendum entered and electronically signed by Kendall Gannon DO 01/26/21 18:56: Patient with CMP EF 30-35% unknown baseline may be related to tachy induced or from COVID. Echo mentions PFO with right to left shunt however only left to right shunt noted on echo, prominent Eustachian valve and moderate . No significant elevated RVSP and do not suspect Eiseinmenger's physiology. Cont inue with supportive COVID treatment. Increased rate control for Afib. Prognosis guarded. 01/27/2021 Patient remains in atrial fibrillation with heart rates ranging between [id number]. Blood pressure 122/78. She is currently receiving metoprolol 75 mg 3 times a day and digoxin 250 g daily 01/28/2021 Patient remains in atrial fibrillation with controlled ventricular rate at the time of my evaluation with a heart rate ranging between 7090. Vital signs are stable. 01/30 Patient seen and examined. Patient has been having A. 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 She denies any symptoms from this however does state she feels fatigued. She converted to normal sinus rhythm today and has been sinus bradycardia. She still complains of fatigue however more likely related to Covid. She denies any significant shortness breath. Denies any lightheadedness. 01/31/2021 Patient remains in sinus mechanism with a heart rate in the 40s. Metoprolol and digoxin have been discontinued. Blood pressure 99/61. PHYSICAL EXAM: Thorough physical exam not completed secondary to limited evaluation/examination due to Covid19 ASSESSMENT: Covid pneumonia Acute hypoxic respiratory failure Abnormal troponins, secondary to above Atrial fibrillation with uncontrolled ventricular rate, unknown if paroxysmal or chronic Valvular heart disease PFO Cardiomyopathy, ejection fraction 30-35%, type unknown, no previous echocardiogram for comparison Sinus bradycardia Up to 3 second pauses while in A. fib PLAN: Continue to hold Digoxin and Metoprolol Decrease amio to 200mg daily Further recommendations pending patient course Nurse practitioner note has been reviewed by physician. Signing provider agrees with the documented findings, assessment, and plan of care. Objective - Vital Signs Vital signs: Vital Signs Temp 97.9 F 01/31/21 11:59 Pulse 44 L 01/31/21 11:59 Resp 18 01/31/21 11:59 BP 99/61 01/31/21 11:59 Pulse Ox 95 01/31/21 11:59 Intake & Output 01/30/21 01/31/21 01/31/21 18:59 06:59 18:59 Intake Total 180 960 Output Total 1 Balance 180 959 Weight 66 kg Intake: Oral 180 960 Output: Stool 1 Other: # Voids 1 1 # Bowel Movements 1 - Labs CBC & Chem 7: 01/31/21 07:39 01/31/21 07:39 Labs: Abnormal Lab Results - Last 24 Hours (Table) 01/31/21 01/31/21 Range/Units 07:39 07:39 WBC 14.0 H (3.8-10.6) k/uL Plt Count 523 H (150-450) k/uL Neutrophils # 12.3 H (1.3-7.7) k/uL Sodium 135 L (137-145) mmol/L Carbon Dioxide 31 H (22-30) mmol/L BUN 48 H (7-17) mg/dL Glucose 101 H (74-99) mg/dL Calcium 8.2 L (8.4-10.2) mg/dL ALT 40 H (4-34) U/L Total Protein 5.4 L (6.3-8.2) g/dL Albumin 2.8 L (3.5-5.0) g/dL
[2021-01-31] MEDS: ACETAMINOPHEN TAB 325 MG TAB PO PRN (16:23)
[2021-01-31] MEDS: MELATONIN 5 MG TABLET PO SCH (20:33)
[2021-02-01] MEDS ORDERED: AMIODARONE 200 MG TAB PO SCH (09:00)
--- NOTE | 2021-02-01 09:07 | P.DS ---
Providers Date of admission: 01/21/21 18:23 Expected date of discharge: 02/01/21 Attending physician: Ollie Solitario Consults: 01/22/21 03:33 Consult Physician Urgent Consulting Provider: Wendi Muñoz Consult Reason/Comments: COVID Do you want consulting provider notified?: Yes Primary care physician: Physician Nonstaff Hospital Course: Discharge Diagnosis: COVID-19 Pneumonia Acute Hypoxic Respiratory failure P. A. fib with RVR currently in normal sinus rhythm Bicuspid aortic valve Elevated troponin due to a fib Acute exacerbation of systolic cardiomyopathy with ejection fraction 30-35%, unknown type 2 Second Pauses on tele, Converted with bradycardia Transaminitis Hospital Course: Patient is an 85-year-old female with glaucoma and heart murmur as a child who initially presented at [facility] secondary to weakness, fever, and nonproductive cough. She underwent an extensive evaluation which showed a chest x-ray with bilateral pneumonia. She was started on Zithromax and subsequently became hypoxic and unresponsive. She did require a nonrebreather mask and initiation of Solu-Medrol and bronchodilators. COVID-19 testing came back positive. She was transferred here for further evaluation. On arrival here she was noted be in A. fib with RVR she was started on a Cardizem drip and cardiology was consulted. On 01/23 she had increasing O2 requirements and Baracitinib was added. Echo came back with EF 30-35%, PFO, moderate with bicuspid valve. Her oxygenation rapidly improved on 01/26. She was having some fluid overload with elevated BNP and was started on Lasix. Her oxygen levels continued to improve and she was taken off O2 on 01/30/21. She completed her Bacacitnib and Dexamethasone treatments. She was determined stable for discharge. Follow-up: Dr. Watts in 1 month[facility]: TONYA Patient seen and examined at bedside. Doing well today, no chest pain, no lightheadedness, no shortness of breath, no cough, reports still feeling weak and tired. Vital signs reviewed and stable. General: non toxic, no distress, appears at stated age Derm: warm, dry Head: atraumatic, normocephalic, symmetric Eyes: EOMI, no lid lag, anicteric sclera Mouth: no lip lesion, mucus membranes moist Cardiovascular: S1S2 reg, no murmur, positive posterior tibial pulse bilateral, Lungs: CTA bilateral, no rhonchi, no rales , no accessory muscle use Abdominal: soft, nontender to palpation, no guarding, no appreciable organomegaly Ext: no gross muscle atrophy, no edema, no contractures Neuro: CN II-XI grossly intact, no focal neuro deficits Psych: Alert, oriented, appropriate affect A total of 45 minutes of time were spent preparing this complex discharge summary . Plan - Discharge Summary Discharge Rx Participant: No New Discharge Prescriptions: New Furosemide [Lasix] 40 mg PO DAILY #0 tab Cholecalciferol [Vitamin D3 (25 Mcg = 1000 Iu)] 125 mcg PO DAILY tablet Amiodarone [Cordarone] 200 mg PO DAILY tab Apixaban [Eliquis] 2.5 mg PO BID #0 tablet Melatonin 5 mg PO HS tablet Zinc Sulfate [Orazinc] 220 mg PO DAILY cap Acetaminophen Tab [Tylenol] 650 mg PO Q6HR PRN tab PRN Reason: Fever And/ Or Pain ALPRAZolam [Xanax] 0.5 mg PO TID PRN #9 tab PRN Reason: Anxiety Continue Ascorbic Acid [Vitamin C] 500 mg PO DAILY Vitamin A (Unknown Strength) 1 tab PO DAILY Vitamin B Complex 1 cap PO DAILY Discontinued Cholecalciferol [Vitamin D3 (25 Mcg = 1000 Iu)] 25 mcg PO DAILY Vitamin E 400 unit PO DAILY Zinc 50 mg PO DAILY Discharge Medication List Ascorbic Acid [Vitamin C] 500 mg PO DAILY 01/21/21 [History] Vitamin A (Unknown Strength) 1 tab PO DAILY 01/21/21 [History] Vitamin B Complex 1 cap PO DAILY 01/21/21 [History] ALPRAZolam [Xanax] 0.5 mg PO TID PRN #9 tab 02/01/21 [Rx] Acetaminophen Tab [Tylenol] 650 mg PO Q6HR PRN tab 02/01/21 [Rx] Amiodarone [Cordarone] 200 mg PO DAILY tab 02/01/21 [Rx] Apixaban [Eliquis] 2.5 mg PO BID #0 tablet 02/01/21 [Rx] Cholecalciferol [Vitamin D3 (25 Mcg = 1000 Iu)] 125 mcg PO DAILY tablet 02/01/21 [Rx] Furosemide [Lasix] 40 mg PO DAILY #0 tab 02/01/21 [Rx] Melatonin 5 mg PO HS tablet 02/01/21 [Rx] Zinc Sulfate [Orazinc] 220 mg PO DAILY cap 02/01/21 [Rx] Follow up Appointment(s)/Referral(s): Mecca Nguyen MD [STAFF PHYSICIAN] - 2 Weeks Kendall Gannon DO [STAFF PHYSICIAN] - 1 Week Nonstaff,Physician [Primary Care Provider] - 1-2 days Activity/Diet/Wound Care/Special Instructions: Activity: as tolerated Diet: heart healthy, low sodium Special Instructions: bmp in 2 days Discharge Disposition: TRANSFER TO SNF/ECF
[2021-02-01 09:13] VITALS: TEMP 97.8
[2021-02-01] MEDS: CHOLECALCIFEROL 25 MCG (1000 IU) TABLET PO SCH (09:13)
[2021-02-01] MEDS: FUROSEMIDE 40 MG TAB PO SCH (09:14)
[2021-02-01] MEDS: ZINC SULFATE 220 MG CAP PO SCH (09:14)
[2021-02-01] MEDS: ASCORBIC ACID 500 MG TAB PO SCH (09:14)
[2021-02-01] MEDS: APIXABAN 2.5 MG TABLET PO SCH (09:14)
[2021-02-01 13:09] VITALS: BP 116/53; PULSE 56; RESP 16
--- NOTE | 2021-02-01 16:56 | P.PN ---
Subjective Progress Note Date: 02/01/21 Principal diagnosis: COVID-19 pneumonia, A. fib with RVR On 01/24/2021 patient seen in follow-up on selective care unit, she is currently on 15 L per high flow nasal cannula, pulse ox is 92%, she is sitting up in the chair, she is short of breath with any exertion. Does not seem to be in any acute distress, she is afebrile, hemodynamically she has been stable, patient continues on Baricitinib, Eliquis for history of atrial fibrillation, and patient is on vitamin C, D, and zinc. Today's chest x-ray shows bilateral infiltrates. Today's labs have been reviewed, sodium is 137, potassium is 4.7, chloride is 109, CO2 is 20, BUN is 44, creatinine 0.94, last d-dimer from yes terday was 0.85, LDH level was 1500, CRP was 3.3. She remains in atrial fibrillation, and the rate is still tachycardic with a rate of 134. Cardiology is following, and patient is currently on metoprolol 25 mg 3 times a day, digoxin and oral Cardizem 60 mg 3 times daily. On 01/25/2021 patient seen in follow-up on selective care unit, she is currently down to 10 L of oxygen, yesterday she was on 15 L, her pulse ox is 90-95%, she is breathing comfortably, denies any chest pain, she remains in atrial fibrillation, and she still tachycardic, her rate is between 90-120 BPM, cardiology is following, patient is on a combination of beta blockers, digoxin, and oral Cardizem, she is on Eliquis for anticoagulation, today her beta deanne dose has been adjusted, and her metoprolol was increased to 50 mg 3 times a day. Patient appears to be anxious, she does not think that she is improving, she r equires a lot of reassurance, she states she is abnormally inches person to start with. She states that she has been up out of bed, generally is weak, but appears to be in no acute distress, she is tolerating oral intake, no abdominal pain, no chest pain. She remains on Baricitinib, Decadron 6 mg daily, she is on COVID-19 vitamins, today's labs have been reviewed, her white count is 10.1, hemoglobin is 12.8, lymphocyte count is 0.8, sodium is 135, potassium is 5.0, chloride is 111, CO2 is 20, BUN is 40, creatinine 0.8, her LDH level was 1500 on 01/23/2021 and CRP is 3.3, follow-up labs are pending for today. On 01/26/2021 patient seen in follow-up on selective care unit. She is awake and alert, she is sitting up in the recliner, she is currently on 15 L of oxygen pulse ox is 95-96%, her breathing has remained stable, she gets dyspneic with exertion, but does not appear to be in any acute respiratory distress, lung sounds reveal a few scattered rhonchi and bibasilar rales, no fever or chills, no complaints of chest discomfort, patient does get anxious at times, she has Xanax as needed. Chest x-ray today shows bilateral airspace disease similar to the prior exam. Patient remains on Baricitinib, Decadron, Eliquis. Today's labs have been reviewed, white blood cell count 11.9, hemoglobin is 12.6, sodium is 139, potassium is 4.9, chloride is 109, BUN is 41, creatinine 0.85. No nausea or vomiting, she is tolerating oral intake, her intake is fair. On 01/27/2021 patient seen in follow-up on selective care unit, she is sitting up in the chair, in no acute distress, her FiO2 is currently down to 6 L and her pulse ox is 94%, she is breathing fairly comfortably, no complaints of chest discomfort. Her A. fib is controlled, on Eliquis for anticoagulation, remains on oral amiodarone at this time. Remains on oral Decadron 6 mg daily. Echocardiogram showed evidence of possible left to left shunt, cardiology is following, and the recommendation is to continue with supportive treatment for coughing at this time. No fever or chills. Yesterday's chest x-ray showed bilateral airspace disease no evident pneumothorax or pleural effusion. No bilateral extremity swelling, clinically patient does not look fluid overloaded. Today's labs have been reviewed, white blood cell count is 12.1, hemoglobin is 12.9, sodium is 139, potassium is 5.0, BUN is 37 creatinine 0.82, proBNP came back elevated at 9,990 On 01/28/2021 patient seen in follow-up on [facility] care unit. She is very fatigued, but appears to be no acute distress, does not appear to be in any respiratory difficulty. 5 to is currently down to 4 L and her pulse ox is 96%, her FiO2 was subsequently cut back to 2 L. Lung sounds are clear, no rhonchi, no wheezing, minimal cough, she's been afebrile, hemodynamically she is stable. She is weak, she very easily fatigues with any activity, the recommendation has been made for retirement facility placement for rehab after discharge. Today labs have been noted. Blood cell count is 14.1, hemoglobin is 13, electrolytes and renal profile are unremarkable, BUN is 41, creatinine 0.89. Patient continues on Decadron 6 mg daily, she did start on IV Lasix. Not fluid balance is difficult to estimate as no acute intake and output is available to us. On today's evaluation on 01/29/2021 patient seen in follow-up on [facility] care unit, she is breathing comfortably, her FiO2 is currently down to 2 L per pulse ox 95%, hemodynamically stable. No Events overnight, no new chest x-rays, today's labs have been reviewed, her white blood cell, 60.7, hemoglobin is 13.9, sodium is 136, potassium is 4.6, CO2 is 32, BUN is 45, creatinine 0.92. Remains on maintenance dose of IV Lasix at 40 mg daily, and she is maintaining negative fluid balance. Patient continues on Baricitinib, Decadron, and Eliquis for atrial fibrillation. Generally she is weak, appetite is poor. Currently discharge arrangements are being made for discharge to [facility] on 02/01/2021 per: Facility COVID guidelines On 02/01/2021 patient seen in follow-up on [facility] care unit, she is awake and alert, in no acute distress, she is breathing comfortably, she is currently on room air pulse ox of 96%, afebrile, hemodynamically she is stable, she is generally weak, seems to be slightly improved, vital is stable overnight, no couplets or chest discomfort, no cough, lung sounds are essentially clear to auscultation. No new labs today. Yesterday's labs have been noted, with little, was improving and was down to 14, hemoglobin was 13.6, sodium was 135, potassium is 4.6, chloride is 99, CO2 31, BUN is 48, creatinine 0.86. No other acute events overnight, patient is tolerating oral intake. She is working with physical therapy, she would benefit from ECF placement for subacute rehab in discharge planning is in progress for discharge to [facility] on the [place] today. Objective - Vital Signs Vital signs: Vital Signs Temp 97.8 F 02/01/21 09:10 Pulse 56 L 02/01/21 12:00 Resp 16 02/01/21 12:00 BP 116/53 02/01/21 12:00 Pulse Ox 96 02/01/21 12:00 Intake & Output 01/31/21 02/01/21 02/01/21 18:59 06:59 18:59 Intake Total 1440 120 Output Total 1 1 Balance 1439 119 Intake: Oral 1440 120 Output: Stool 1 1 Other: # Voids 2 - Exam GENERAL EXAM: Alert, very pleasant, 85-year-old white female, on room air with pulse ox of 96%comfortable in no apparent distress. HEAD: Normocephalic/atraumatic. EYES: Normal reaction of pupils, equal size. Conjunctiva pink, sclera white. NOSE: Clear with pink turbinates. THROAT: No erythema or exudates. NECK: No masses, no JVD, no thyroid enlargement, no adenopathy. CHEST: No chest wall deformity. Symmetrical expansion. LUNGS: Equal air entry with bilateral crackles CVS: Irregular rate and rhythm, normal S1 and S2, no gallops, no murmurs, no rubs ABDOMEN: Soft, nontender. No hepatosplenomegaly, normal bowel sounds, no guarding or rigidity. EXTREMITIES: No clubbing, no edema, no cyanosis, 2+ pulses and upper and lower extremities. MUSCULOSKELETAL: Muscle strength and tone normal. SPINE: No scoliosis or deformity SKIN: No rashes CENTRAL NERVOUS SYSTEM: Alert and oriented -3. No focal deficits, tone is normal in all 4 extremities. PSYCHIATRIC: Alert and oriented -3. Appropriate affect. Intact judgment and insight. - Labs CBC & Chem 7: 01/31/21 07:39 01/31/21 07:39 Assessment and Plan Plan: Assessment: #1. Acute hypoxic respiratory failure secondary to acute COVID 19 pneumonia, patient is a non-vaccinated individual, she was outside the window for Remd esivir. treated with Baricitinib #2. A. fib with rapid ventricular response, patient remains in A. fib with RVR with a rate of 134 BPM today, she is currently on metoprolol 25 mg 3 times a day, digoxin, oral Cardizem, and Eliquis #3. Elevated inflammatory markers related to viral pneumonia #4. Chronic atrial fibrillation, on Eliquis #5. Anxiety 6. Nonsmoker Plan: Vital signs are stable Patient is maintaining stable oxygenation on room air Baricitinib has been discontinued, patient has completed Decadron No acute events overnight, vital signs have been stable Discharge is pending for discharge to [facility] on the [place] today Outpatient follow-up with Dr. Dr. Virgen in the office in 2 weeks I performed a history & physical examination of the patient and discussed their management with my nurse practitioner, Isabella Coleman. I reviewed the nurse practitioner's note and agree with the documented findings and plan of care. Lung sounds are positive for bilateral crackles throughout the lung richards. The findings and the impression was discussed with the patient. I attest to the documentation by the nurse practitioner. Time with Patient: Less than 30
== END 2021-02-01 15:29 | DRG 177 ==
LOC: EC 15:27 → 3SCARD 18:23
PROVIDERS: ADMIT Internal Medicine; ATTEND Internal Medicine
PROC: XW033G6 Introduction of REGN-COV2 Monoclonal Antibody into Peripheral Vein, Percutaneous Approach, New Technology Group 6 (ICD-10-PCS; principal; 2021-01-21)
PROC: XW0DXM6 Introduction of Baricitinib into Mouth and Pharynx, External Approach, New Technology Group 6 (ICD-10-PCS; 2021-01-23)
PROC: 5A0945A Assistance with Respiratory Ventilation, 24-96 Consecutive Hours, High Flow/Velocity Cannula (ICD-10-PCS; 2021-01-23)
DX: U07.1 COVID-19 (principal); J12.82 Pneumonia due to coronavirus disease 2019; J96.01 Acute respiratory failure with hypoxia; I48.20 Chronic atrial fibrillation, unspecified; N17.9 Acute kidney failure, unspecified; Q23.1 Congenital insufficiency of aortic valve; Q21.1 Atrial septal defect; I42.8 Other cardiomyopathies; R00.2 Palpitations; F41.0 Panic disorder [episodic paroxysmal anxiety]; R74.01 Elevation of levels of liver transaminase levels; R00.1 Bradycardia, unspecified; E87.70 Fluid overload, unspecified; R77.8 Other specified abnormalities of plasma proteins; Z79.01 Long term (current) use of anticoagulants; Z79.899 Other long term (current) drug therapy; Z85.828 Personal history of other malignant neoplasm of skin; H40.9 Unspecified glaucoma
CPT/HCPCS: 36415; 71045; 80048; 80053; 83615; 83735; 83880; 84439; 84443; 84481; 84484; 85025; 85379; 85610; 85730; 86140; 93005; 93306; 94760; 99291

== ENCOUNTER 2021-10-14 13:12 | Emergency (ER) | payer OTHER, MEDICARE ==
[2021-10-14 13:23] VITALS: RESP 18; TEMP 98.7
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
[2021-10-14] MEDS ORDERED: TOPICAL SKIN ADHESIVE 1 EACH AMP TOPICAL ONE (15:02)
[2021-10-14] MEDS ORDERED: hydrALAZINE HCL 20 MG/ML 1 ML VIAL IVP STA (15:38)
[2021-10-14 16:37] VITALS: BP 184/72
[2021-10-14 16:39] VITALS: PULSE 63
== END 2021-10-14 16:38 | disposition home or self-care (01) ==
LOC: EC 13:12
DX: S02.2XXA Fracture of nasal bones, initial encounter for closed fracture (principal); S01.21XA Laceration without foreign body of nose, initial encounter; I16.0 Hypertensive urgency; Z79.899 Other long term (current) drug therapy; Z88.1 Allergy status to other antibiotic agents; Z88.0 Allergy status to penicillin; Z88.4 Allergy status to anesthetic agent; Z91.041 Radiographic dye allergy status; Z91.048 Other nonmedicinal substance allergy status; V43.52XA Car driver injured in collision with other type car in traffic accident, initial encounter
CPT/HCPCS: 99284; 12011; 96374; 71046; 72125; 70486; 70450; J0360